=== PATIENT | male | born 1985 | race Two or more races ===

== ENCOUNTER 2019-07-07 17:07 | Inpatient (IN) | payer SELFPAY ==
[2019-07-07] MEDS ORDERED: MAGNESIUM SULFATE/D5W 1 GM/100 ML RTUPB IV ONE (17:11)
[2019-07-07] MEDS ORDERED: ALBUTEROL SULFATE HFA (90 MCG/PUFF) 8 GM MDI (1 MDI/ER DISP) IH ONE (17:15)
[2019-07-07] MEDS ORDERED: METHYLPREDNISOLONE INJ 125 MG/2 ML SDV IV ONE (17:23)
[2019-07-07 17:38] LABS: ABSOLUTE LYMPHOCYTES (AUTO) 1.3 10^3/uL (0.5-4.7); ABSOLUTE MONOCYTES (AUTO) 0.9 10^3/uL (0.1-1.4); ABSOLUTE NEUT (AUTO) 11.1 10^3/uL (1.7-8.2); BASOPHILS % (AUTO) 0.3 % (0-2); EOSINOPHILS % (AUTO) 0.1 % (0-6); HEMOGLOBIN 18.5 g/dL (13.5-17.0); LYMPHOCYTES % (AUTO) 9.8 % (13-45); MEAN CORPUSCULAR HEMOGLOBIN 30.3 pg (27.0-33.4); MEAN CORPUSCULAR HGB CONC 33.5 g/dL (32.0-36.0); MEAN CORPUSCULAR VOLUME 90 fl (80-97); MONOCYTES % (AUTO) 6.5 % (3-13); PLATELET COUNT 295 10^3/uL (150-450); RED BLOOD COUNT 6.12 10^6/uL (4.35-5.55); RED CELL DISTRIBUTION WIDTH 15.4 % (11.5-14.0); SEGMENTED NEUTROPHILS % (AUTO) 83.3 % (42-78); TOTAL CELLS COUNTED % (AUTO) 100 %; WHITE BLOOD COUNT 13.4 10^3/uL (4.0-10.5)
[2019-07-07 17:39] LABS: HEMATOCRIT 55.3 % (37.9-51.0)
[2019-07-07 17:50] LABS: ALBUMIN 3.1 g/dL (3.5-5.0); ALKALINE PHOSPHATASE 152 U/L (38-126); ANION GAP 8 (5-19); ASPARTATE AMINO TRANSFERASE 59 U/L (17-59); BILIRUBIN,DIRECT 1.1 mg/dL (0.0-0.4); BILIRUBIN,TOTAL 2.3 mg/dL (0.2-1.3); BLOOD UREA NITROGEN 13 mg/dL (7-20); CALCIUM 8.6 mg/dL (8.4-10.2); CARBON DIOXIDE 34 mmol/L (22-30); CHLORIDE 86 mmol/L (98-107); GLUCOSE 106 mg/dL (75-110); POTASSIUM 4.4 mmol/L (3.6-5.0); TOTAL PROTEIN 7.3 g/dL (6.3-8.2)
[2019-07-07 17:54] LABS: A TYPE INFLUENZA AG NEGATIVE (NEGATIVE); B INFLUENZA AG NEGATIVE (NEGATIVE)
--- NOTE | 2019-07-07 18:05 | RADIOLOGY REPORT (SQ) ---
EXAM DESCRIPTION: CHEST SINGLE VIEW IMAGES COMPLETED DATE/TIME: 07/07/2019 5:50 pm REASON FOR STUDY: dyspnea COMPARISON: None. EXAM PARAMETERS: NUMBER OF VIEWS: One view. TECHNIQUE: An AP view of the chest was obtained. RADIATION DOSE: NA LIMITATIONS: None. FINDINGS: LUNGS AND PLEURA: There are basilar-predominant patchy parenchymal opacities. The right c ostophrenic sulcus is blunted. There is no pneumothorax. MEDIASTINUM AND HILAR STRUCTURES: No mediastinal or hilar contour abnormality. HEART AND VASCULAR STRUCTURES: The cardiac silhouette is enlarged. The pulmonary vasculature is mikayla stinct. BONES: No acute findings. HARDWARE: None in the chest. OTHER: No other finding. IMPRESSION: Cardiomegaly with findings of CHF. TECHNICAL DOCUMENTATION: JOB ID: [id number] 2010 [employer]- All Rights Reserved Reading location - IP/workstation name: [email or web address]
[2019-07-07 18:10] LABS: TROPONIN I 0.082 ng/mL
[2019-07-07] MEDS ORDERED: FUROSEMIDE INJ/PF 40 MG/4 ML SDV IV ONE (18:19)
--- NOTE | 2019-07-07 19:18 | EKG REPORT ---
SEVERITY:- ABNORMAL ECG - SINUS TACHYCARDIA PROBABLE LEFT ATRIAL ABNORMALITY BORDERLINE T WAVE ABNORMALITIES INFERIOR LEADS PROLONGED QT INTERVAL IVCD : Confirmed by: Aiden Hodges MD 07-Jul-2019 19:17:36
--- NOTE | 2019-07-07 19:39 | ER Document Report ---
ED General - General Chief Complaint: Shortness Of Breath Stated Complaint: DIFFICULTY BREATHING Time Seen by Provider: 07/07/19 17:08 - HPI Notes: Patient is a 33-year-old male who presents to the emergency department for evaluation of difficulty breathing. He has had some difficulty over the last couple weeks. He has had a minimal cough, intermittently productive. He states it felt like it started which is some sinus congestion. No fevers. He has a history of asthma as a child. He does admit to smoking. He denies any pain at this point. He has had no nausea or vomiting. He is eating and drinking as usual. He does not follow with a primary care provider at this time. - Related Data Allergies/Adverse Reactions: No Known Allergies Allergy (Unverified 01/30/12 06:37) Past Medical History - General Information source: Patient - Social History Smoking Status: Current Every Day Smoker Chew tobacco use (# tins/day): No Frequency of alcohol use: Social Drug Abuse: None Family History: Reviewed & Not Pertinent Patient has suicidal ideation: No Patient has homicidal ideation: No Pulmonary Medical History: Reports: Hx Asthma - Immunizations Hx Diphtheria, Pertussis, Tetanus Vaccination: No Review of Systems - Review of Systems Respiratory: See HPI -: Yes All other systems reviewed and negative Physical Exam - Vital signs Vitals: Temp 98.4 F 07/07/19 17:07 - Notes Notes: This is an obese 33-year-old male who appears his stated age in a mild to moderate distress. Initially he has brought into the room, is found to be tachypneic. Mildly increased work of breathing. Vital signs reviewed, please refer to chart. Head is normocephalic, atraumatic. Pupils equal round, reactive to light. Neck is supple without meningismus. Heart is tachycardic with normal S1, S2. Lungs are clear to auscultation bilaterally. Abdomen is soft, nontender, normoactive bowel sounds throughout. Extremities without cyanosis, clubbing. Posterior calves are nontender. Peripheral pulses are equal. Skin is warm, mildly diaphoretic. Patient is awake, alert, neurological exam is nonfocal. Course - Re-evaluation Re-evalutation: 07/07/19 19:38 Patient presents to the emergency department for evaluation. He has had a cough, but no fevers, no abnormal travel, no other risk factors for coronavirus at this time. He was found to be markedly hypoxic. He was placed on nasal cannula at 6 L and has been between 90 to 94%. His respiratory rate improved. He was given 6 puffs of an albuterol inhaler. His blood pressure is markedly elevated, but I do strongly suspect this is in part secondary to his large arms in the size of our cuff. His chest x-ray and proBNP are consistent with signs of congestive heart failure. He is given 40 mg of IV Lasix and did diurese. Patient is currently stable, denies any pain. 07/07/19 21:30 ABG was ordered. He does have some CO2 retention, but his pH is only slightly low. Currently his respiratory rate is improved. He continues to require nasal cannula. He was given labetalol for his elevated blood pressure and it has responded significantly. I spoke with Dr. Stratton. He will admit the patient to [facility] for further care. - Vital Signs Vital signs: Temp Pulse Resp BP Pulse Ox 98.7 F 84 24 H 129/116 H 94 07/07/19 19:49 07/07/19 21:16 07/07/19 21:16 07/07/19 21:16 07/07/19 21:16 - Laboratory Result Diagrams: 07/07/19 17:17 07/07/19 17:17 Laboratory results interpreted by me: 07/07/19 07/07/19 07/07/19 17:17 17:17 17:17 WBC 13.4 H RBC 6.12 H Hgb 18.5 H Hct 55.3 H RDW 15.4 H Lymph % (Auto) 9.8 L Absolute Neuts (auto) 11.1 H Seg Neutrophils % 83.3 H Carbonic Acid ABG pH ABG pCO2 ABG HCO3 ABG Total CO2 Sodium 127.7 L Chloride 86 L Carbon Dioxide 34 H Total Bilirubin 2.3 H Direct Bilirubin 1.1 H Alkaline Phosphatase 152 H NT-Pro-B Natriuret Pep 908 H Albumin 3.1 L Urine Protein Urine Blood Urine Urobilinogen 07/07/19 07/07/19 18:51 20:45 WBC RBC Hgb Hct RDW Lymph % (Auto) Absolute Neuts (auto) Seg Neutrophils % Carbonic Acid 1.91 H ABG pH 7.34 L ABG pCO2 63.5 H ABG HCO3 33.7 H ABG Total CO2 35.7 H Sodium Chloride Carbon Dioxide Total Bilirubin Direct Bilirubin Alkaline Phosphatase NT-Pro-B Natriuret Pep Albumin Urine Protein >=500 H Urine Blood SMALL H Urine Urobilinogen 2.0 H - Diagnostic Test Radiology reviewed: Image reviewed, Reports reviewed Radiology results interpreted by me: 07/07/19 19:39 Chest X-Ray 07/07/19 17:09 IMPRESSION: Cardiomegaly with findings of CHF. - EKG Interpretation by Me Additional EKG results interpreted by me: 07/07/19 19:39 Sinus tachycardia with a rate of 101 bpm. Normal axis. Prolonged QT interval. Incomplete right bundle branch block. No old studies available for comparison. Discharge - Discharge Clinical Impression: Hypoxemia, Acute asthma Congestive heart failure Qualifiers: Heart failure type: unspecified Heart failure chronicity: acute Qualified Code(s): I50.9 - Heart failure, unspecified Condition: Stable Disposition: ADMITTED INPATIENT Admitting Provider: Viral (Hospitalist) Unit Admitted: [facility]
[2019-07-07] MEDS ORDERED: LABETALOL HCL INJ 20 MG/4 ML DISP.SYRIN IV ONE (19:46)
[2019-07-07 20:11] LABS: APPEARANCE,URINE CLEAR; BILIRUBIN,URINE NEGATIVE (NEGATIVE); COLOR,URINE YELLOW; GLUCOSE, URINE NEGATIVE (NEGATIVE); KETONES,URINE NEGATIVE (NEGATIVE); LEUKOCYTE ESTERASE,URINE NEGATIVE (NEGATIVE); NITRITE,URINE NEGATIVE (NEGATIVE); PROTEIN,URINE >=500 mg/dL (NEGATIVE); URINE SPECIFIC GRAVITY 1.008
[2019-07-07 20:54] LABS: ARTERIAL BLOOD FIO2 100%; ARTERIAL BLOOD H2CO3 1.91 mmol/L (1.05-1.35); ARTERIAL BLOOD HCO3 33.7 mmol/L (20-24); ARTERIAL BLOOD O2 SATURATION 95.7 % (94-98); ARTERIAL BLOOD PCO2 63.5 mmHg (35-45); ARTERIAL BLOOD PH 7.34 (7.35-7.45); ARTERIAL BLOOD PO2 85.4 mmHg (80-100); ARTERIAL BLOOD TOTAL CO2 35.7 mmol/L (23-27)
[2019-07-07 21:14] LABS: URINE BARBITURATES SCREEN NEGATIVE; URINE BENZODIAZEPINES SCREEN NEGATIVE; URINE COCAINE SCREEN NEGATIVE; URINE MARIJUANA (THC) SCREEN NEGATIVE; URINE METHADONE SCREEN NEGATIVE; URINE PHENCYCLIDINE SCREEN NEGATIVE
[2019-07-07 21:21] LABS: URINE AMPHETAMINES SCREEN UNCONFIRMED POSITIVE
[2019-07-07] MEDS ORDERED: HYDRALAZINE HCL INJ/PF 20 MG/1 ML SDV IV PRN (21:29)
[2019-07-07] MEDS ORDERED: POTASSIUM CHLORIDE 10 MEQ TABLET.ER PO ONE (21:31)
[2019-07-07] MEDS ORDERED: ENALAPRILAT DIHYDRATE INJ/PF 1.25 MG/1 ML SDV IV PRN (21:34)
[2019-07-07] MEDS ORDERED: METOPROLOL TARTRATE PF/INJ 5 MG/5 ML SDV IV PRN (21:34)
[2019-07-07] MEDS ORDERED: METOPROLOL TARTRATE PF/INJ 5 MG/5 ML SDV IV ONE (21:34)
[2019-07-07] MEDS ORDERED: MAG HYDROX/AL HYDROX/SIMETH SUSP 30 ML UDCUP PO PRN (21:34)
[2019-07-07] MEDS ORDERED: MAGNESIUM HYDROXIDE SUSP 30 ML UDCUP PO PRN (21:34)
[2019-07-07] MEDS: FLUTICASONE NASAL SPRAY 50 MCG/SPRY 120 SPRAY/16 GM NASL SCH (23:43)
[2019-07-07] MEDS: HEPARIN SOD (PORCINE) 5,000 UNIT/ML 1 ML VIAL SUBCUT SCH (23:44)
[2019-07-07] MEDS: NITROGLYCERIN 5 MG (0.2 MG/HR) PATCH.TD24 TD SCH (23:44)
[2019-07-08] MEDS ORDERED: NICOTINE 14 MG/24 HR PATCH.TD24 TD ONE (02:15)
[2019-07-08] MEDS: HEPARIN SOD (PORCINE) 5,000 UNIT/ML 1 ML VIAL SUBCUT SCH ×3 (05:51→21:05)
--- NOTE | 2019-07-08 06:04 | PDOC H&P ---
History of Present Illness Admission Date/PCP: 07/07/19 21:43 Patient complains of: Shortness of breath History of Present Illness: SKY IRVING is a 33 year old male with a past medical history of morbid obesity and tobacco dependence who describes 7 to 10 days of sinus and chest congestion prompting him to use multiple yaxf-tar-jmnfgkb agents with minimal relief. He denies fever, palpitations, chest pain, nausea vomiting but admits a intermittent cough with yellow sputum. In the emergency department he is found to have tachypnea, hypoxia, hyponatremia, elevated BNP and pulmonary vascular congestion. He received IV Lasix, BiPAP and referred to the hospitalist for admission. He denies fever, exposure to known covert patients or recent travel. Past Medical History Medical History: None Cardiac Medical History: Reports: None Pulmonary Medical History: Reports: Bronchitis Psychiatric Medical History: Reports: Tobacco Dependency Past Surgical History Past Surgical History: Reports: None Social History Information Source: Patient Lives with: Family Smoking Status: Current Every Day Smoker Cigarettes Packs Per Day: 2 Electronic Cigarette use?: No Number of Years Smokin Last Time Smoked: 07/07/19 Frequency of Alcohol Use: Occasional Hx Recreational Drug Use: No Hx Prescription Drug Abuse: No - Advance Directive Resuscitation Status: Full Code Family History Family History: DM, Hypertension, Other - Morbid obesity Parental Family History Reviewed: Yes Children Family History Reviewed: Yes Sibling(s) Family History Reviewed.: Yes Medication/Allergy Allergies/Adverse Reactions: No Known Allergies Allergy (Unverified 01/30/12 06:37) Physical Exam Vital Signs: Temp Pulse Resp BP Pulse Ox 97.5 F 85 32 H 139/86 H 90 L 07/08/19 03:27 07/08/19 03:27 07/08/19 04:54 07/08/19 03:27 07/08/19 03:27 Intake & Output 07/06/19 07/07/19 07/08/19 11:59 11:59 11:59 Intake Total 100 Output Total 1200 Balance -1100 Weight 180 kg General appearance: PRESENT: no acute distress, cooperative, morbidly obese, well-developed, well-nourished Head exam: PRESENT: atraumatic, normocephalic Eye exam: PRESENT: conjunctiva pink, EOMI, PERRLA. ABSENT: scleral icterus Ear exam: PRESENT: normal external ear exam Mouth exam: PRESENT: moist, tongue midline Neck exam: ABSENT: carotid bruit, JVD, lymphadenopathy, thyromegaly Respiratory exam: PRESENT: accessory muscle use, crackles, prolonged expiratory phas, wheezes. ABSENT: rales, rhonchi Cardiovascular exam: PRESENT: RRR. ABSENT: diastolic murmur, rubs, systolic murmur Pulses: PRESENT: normal dorsalis pedis pul Vascular exam: PRESENT: normal capillary refill GI/Abdominal exam: PRESENT: normal bowel sounds, soft. ABSENT: distended, guarding, mass, organolmegaly, rebound, tenderness Rectal exam: PRESENT: deferred Extremities exam: PRESENT: full ROM. ABSENT: calf tenderness, clubbing, pedal edema Neurological exam: PRESENT: alert, awake, oriented to person, oriented to place, oriented to time, oriented to situation, CN II-XII grossly intact. ABSENT: motor sensory deficit Psychiatric exam: PRESENT: appropriate affect, normal mood. ABSENT: homicidal ideation, suicidal ideation Skin exam: PRESENT: dry, intact, warm. ABSENT: cyanosis, rash Results Laboratory Results: 07/07/19 17:17 07/07/19 17:17 07/07/19 07/07/19 07/07/19 17:17 17:17 17:17 WBC 13.4 H RBC 6.12 H Hgb 18.5 H Hct 55.3 H MCV 90 MCH 30.3 MCHC 33.5 RDW 15.4 H Plt Count 295 Seg Neutrophils % 83.3 H Carbonic Acid HCO3/H2CO3 Ratio ABG pH ABG pCO2 ABG pO2 ABG HCO3 ABG O2 Saturation ABG Base Excess FiO2 Sodium 127.7 L Potassium 4.4 Chloride 86 L Carbon Dioxide 34 H Anion Gap 8 BUN 13 Creatinine 0.61 Est GFR ( Amer) > 60 Glucose 106 Calcium 8.6 Total Bilirubin 2.3 H AST 59 Alkaline Phosphatase 152 H Total Protein 7.3 Albumin 3.1 L TSH 3.14 Urine Color Urine Appearance Urine pH Ur Specific [place] Urine Protein Urine Glucose (UA) Urine Ketones Urine Blood Urine Nitrite Ur Leukocyte Esterase Urine WBC (Auto) Urine RBC (Auto) 07/07/19 07/07/19 18:51 20:45 WBC RBC Hgb Hct MCV MCH MCHC RDW Plt Count Seg Neutrophils % Carbonic Acid 1.91 H HCO3/H2CO3 Ratio 17:1 ABG pH 7.34 L ABG pCO2 63.5 H ABG pO2 85.4 ABG HCO3 33.7 H ABG O2 Saturation 95.7 ABG Base Excess 5.0 FiO2 100% Sodium Potassium Chloride Carbon Dioxide Anion Gap BUN Creatinine Est GFR ( Amer) Glucose Calcium Total Bilirubin AST Alkaline Phosphatase Total Protein Albumin TSH Urine Color YELLOW Urine Appearance CLEAR Urine pH 6.0 Ur Specific [place] 1.008 Urine Protein >=500 H Urine Glucose (UA) NEGATIVE Urine Ketones NEGATIVE Urine Blood SMALL H Urine Nitrite NEGATIVE Ur Leukocyte Esterase NEGATIVE Urine WBC (Auto) 3 Urine RBC (Auto) 1 07/07/19 07/07/19 17:17 23:18 Troponin I 0.082 0.067 NT-Pro-B Natriuret Pep 908 H Impressions: Chest X-Ray 07/07/19 17:09 IMPRESSION: Cardiomegaly with findings of CHF. Assessment and Plan - Diagnosis (1) Morbid obesity with alveolar hypoventilation Is this a current diagnosis for this admission?: Yes Plan: Avoid cervical flexion, trial BiPAP, follow-up TSH (2) Polycythemia secondary to smoking Is this a current diagnosis for this admission?: Yes Plan: Supplemental oxygen, tobacco cessation counseling performed and nicotine replacement options ordered. (3) Tobacco abuse Is this a current diagnosis for this admission?: Yes Plan: Tobacco cessation counseling performed, nicotine replacement option ordered. (4) Congestive heart failure Qualifiers: Heart failure type: unspecified Heart failure chronicity: acute Qualified Code(s): I50.9 - Heart failure, unspecified Is this a current diagnosis for this admission?: Yes Plan: Appears volume overloaded. IV Lasix initiated, BiPAP, follow-up 2D echo (5) Hypoxemia Is this a current diagnosis for this admission?: Yes Plan: Corrects with supplemental oxygen, multifactorial secondary to morbid obesity hypoventilation and congestive heart failure. Consider repeat ABG but clinically awake and alert conversational (6) Allergic sinusitis Is this a current diagnosis for this admission?: Yes Plan: Flonase ordered - Time Time Spent with patient: 25-34 minutes - Inpatient Certification Medical Necessity: Need Close Monitoring Due to Risk of Patient Decompensation
[2019-07-08 06:50] LABS: ANION GAP 6 (5-19); BLOOD UREA NITROGEN 15 mg/dL (7-20); CALCIUM 8.6 mg/dL (8.4-10.2); CARBON DIOXIDE 35 mmol/L (22-30); CHLORIDE 91 mmol/L (98-107); GLUCOSE 135 mg/dL (75-110); POTASSIUM 4.5 mmol/L (3.6-5.0)
[2019-07-08] MEDS ORDERED: FUROSEMIDE INJ/PF 40 MG/4 ML SDV IV SCH (10:00)
--- NOTE | 2019-07-08 10:31 | PDOC PROGRESS REPORT ---
Subjective Progress Note for:: 07/08/19 Subjective:: Patient complains of: Shortness of breath History of Present Illness: SKY IRVING is a 33 year old male with a past medical history of morbid obesity and tobacco dependence who describes 7 to 10 days of sinus and chest congestion prompting him to use multiple zcfy-vip-cespjkl agents with minimal relief. He denies fever, palpitations, chest pain, nausea vomiting but admits a intermittent cough with yellow sputum. In the emergency department he is found to have tachypnea, hypoxia, hyponatremia, elevated BNP and pulmonary vascular congestion. He received IV Lasix, BiPAP and referred to the hospitalist for admission. He denies fever, exposure to known covert patients or recent travel. Interval history: 07/08/2019: Patient seen and examined. He is on BiPAP. He says he is feeling better. He wants to go home and go back to work. Echocardiogram still pending. Reason For Visit: HEART FAILURE Physical Exam Vital Signs: Temp Pulse Resp BP Pulse Ox 97.2 F 88 38 H 147/94 H 90 L 07/08/19 07:31 07/08/19 07:31 07/08/19 09:28 07/08/19 07:31 07/08/19 09:28 Intake & Output 07/07/19 07/08/19 07/09/19 06:59 06:59 06:59 Intake Total 250 Output Total 1200 Balance -950 Weight 401 lb 14.443 oz Exam: Physical Exam General appearance: no acute distress, cooperative, morbidly obese, well- developed, well-nourished Head exam: atraumatic, normocephalic Eye exam: conjunctiva pink, EOMI, PERRLA. No scleral icterus Ear exam: normal external ear exam Mouth exam: moist, tongue midline Neck exam: No carotid bruit, JVD, lymphadenopathy, thyromegaly Respiratory exam: accessory muscle use, crackles, prolonged expiratory phas, wheezes. No rales, rhonchi Cardiovascular exam: RRR. No diastolic murmur, rubs, systolic murmur Pulses: normal dorsalis pedis pul Vascular exam: normal capillary refill GI/Abdominal exam: normal bowel sounds, soft. No distended, guarding, mass, organolmegaly, rebound, tenderness Rectal exam: deferred Extremities exam: full ROM. No calf tenderness, clubbing, pedal edema Neurological exam: alert, awake, oriented to person, oriented to place, oriented to time, oriented to situation, CN II-XII grossly intact. No motor sensory deficit Psychiatric exam: appropriate affect, normal mood. No homicidal ideation, suicidal ideation Skin exam: dry, intact, warm. No cyanosis, rash Results Laboratory Results: 07/07/19 17:17 07/08/19 05:18 07/07/19 07/07/19 07/07/19 17:17 17:17 17:17 WBC 13.4 H RBC 6.12 H Hgb 18.5 H Hct 55.3 H MCV 90 MCH 30.3 MCHC 33.5 RDW 15.4 H Plt Count 295 Seg Neutrophils % 83.3 H Carbonic Acid HCO3/H2CO3 Ratio ABG pH ABG pCO2 ABG pO2 ABG HCO3 ABG O2 Saturation ABG Base Excess FiO2 Sodium 127.7 L Potassium 4.4 Chloride 86 L Carbon Dioxide 34 H Anion Gap 8 BUN 13 Creatinine 0.61 Est GFR ( Amer) > 60 Glucose 106 Calcium 8.6 Total Bilirubin 2.3 H AST 59 Alkaline Phosphatase 152 H Total Protein 7.3 Albumin 3.1 L TSH 3.14 Urine Color Urine Appearance Urine pH Ur Specific [place] Urine Protein Urine Glucose (UA) Urine Ketones Urine Blood Urine Nitrite Ur Leukocyte Esterase Urine WBC (Auto) Urine RBC (Auto) 07/07/19 07/07/19 07/08/19 18:51 20:45 05:18 WBC RBC Hgb Hct MCV MCH MCHC RDW Plt Count Seg Neutrophils % Carbonic Acid 1.91 H HCO3/H2CO3 Ratio 17:1 ABG pH 7.34 L ABG pCO2 63.5 H ABG pO2 85.4 ABG HCO3 33.7 H ABG O2 Saturation 95.7 ABG Base Excess 5.0 FiO2 100% Sodium 131.7 L Potassium 4.5 Chloride 91 L Carbon Dioxide 35 H Anion Gap 6 BUN 15 Creatinine 0.54 Est GFR ( Amer) > 60 Glucose 135 H Calcium 8.6 Total Bilirubin AST Alkaline Phosphatase Total Protein Albumin TSH Urine Color YELLOW Urine Appearance CLEAR Urine pH 6.0 Ur Specific [place] 1.008 Urine Protein >=500 H Urine Glucose (UA) NEGATIVE Urine Ketones NEGATIVE Urine Blood SMALL H Urine Nitrite NEGATIVE Ur Leukocyte Esterase NEGATIVE Urine WBC (Auto) 3 Urine RBC (Auto) 1 07/07/19 07/07/19 07/08/19 17:17 23:18 05:18 Troponin I 0.082 0.067 0.045 NT-Pro-B Natriuret Pep 908 H Impressions: Chest X-Ray 07/07/19 17:09 IMPRESSION: Cardiomegaly with findings of CHF. Assessment and Plan - Plan Summary Summary: Assessment and Plan (1) Morbid obesity with alveolar hypoventilation Is this a current diagnosis for this admission?: Yes Plan: Continue BiPAP, normal TSH. Will need sleep study outpatient. (2) Polycythemia secondary to smoking Is this a current diagnosis for this admission?: Yes Plan: Supplemental oxygen, tobacco cessation counseling performed and nicotine replacement options ordered. (3) Tobacco abuse Is this a current diagnosis for this admission?: Yes Plan: Tobacco cessation counseling performed, nicotine replacement option ordered. (4) Congestive heart failure Qualifiers: Heart failure type: unspecified Heart failure chronicity: acute Qualified Code(s): I50.9 - Heart failure, unspecified Is this a current diagnosis for this admission?: Yes Plan: Appears volume overloaded. Continue IV Lasix BiPAP, follow-up 2D echo. C ardiology consultation. (5) Hypoxemia Is this a current diagnosis for this admission?: Yes Plan: Corrects with supplemental oxygen, multifactorial secondary to morbid obesity hypoventilation and congestive heart failure. (6) Allergic sinusitis Is this a current diagnosis for this admission?: Yes Plan: Flonase ordered
[2019-07-08] MEDS: POTASSIUM CHLORIDE 10 MEQ TABLET.ER PO SCH (11:37)
[2019-07-08] MEDS: ASPIRIN 81 MG TABLET, ENT COATED PO SCH (11:37)
[2019-07-08] MEDS: NITROGLYCERIN 5 MG (0.2 MG/HR) PATCH.TD24 TD SCH (11:38)
[2019-07-08] MEDS: FLUTICASONE NASAL SPRAY 50 MCG/SPRY 120 SPRAY/16 GM NASL SCH ×2 (11:44→21:09)
[2019-07-08 12:25] LABS: ANION GAP 6 (5-19); BLOOD UREA NITROGEN 17 mg/dL (7-20); CARBON DIOXIDE 38 mmol/L (22-30); CHLORIDE 90 mmol/L (98-107); GLUCOSE 129 mg/dL (75-110); POTASSIUM 4.9 mmol/L (3.6-5.0)
[2019-07-08] MEDS: ACETAMINOPHEN 325 MG TABLET PO PRN (21:08)
--- NOTE | 2019-07-08 23:37 | XCELERA REPORT ---
[address] [address] Transthoracic Echocardiogram Report Name: SKY IRVING Age: 33 yrs Gender: Male : 1985 Patient Status: Inpatient Patient Location: [facility]^A Study Date: 07/08/2019 03:41 PM Height: 69 in Weight: 401 lb BSA: 2.8 m2 Procedure: A two-dimensional transthoracic echocardiogram with color flow and Doppler was performed. Study Quality: Poor. Very poor endocardial defeniition and poor doppler interogation. Reason For Study: chf History: CHF. Ordering Physician: MARTIN ROWE Performed By: Maria G Zavaleta Interpretation Summary The left ventricle is mildly dilated. There is mild to moderate concentric left ventricular hypertrophy. LV diastolic function could not be adequately assessed. Probably moderate diffuse hypokinesis with LVEF moderately reduced at 35% to 40%.No obvious clots seen.Cannot assess ASD ,VSD,or PFO, The right ventricle is not well visualized secondary to technical limitations Right atrium not well visualized secondary to technical limitations There is no evidence of mitral valve prolapse. There is no mitral valve stenosis. There is a trace amount of mitral regurgitation There is no aortic valve stenosis No aortic regurgitation is present. There is no tricuspid stenosis. There is a trace amount of tricuspid regurgitation Tricuspid regurgitation jet envelope not well defined to measure RV systolic pressure accurately. There is no pulmonic valvular stenosis. There is a trace amount of pulmonic regurgitation The aortic root is not well visualized but is probably normal size. The inferior vena cava was not visualized There is no pericardial effusion. MMode/2D Measurements & Calculations RVDd: 2.9 cm LVIDd: 6.1 cm FS: 14.0 % Ao root diam: 3.5 cm IVSd: 1.4 cm LVIDs: 5.2 cm EDV(Teich): 186.6 ml Ao root area: 9.4 cm2 LVPWd: 1.6 cm ESV(Teich): 132.0 ml LA dimension: 3.5 cm EF(Teich): 29.3 % Doppler Measurements & Calculations MV E max mikey: MV P1/2t max mikey: Ao V2 max: LV V1 max P.1 cm/sec 123.1 cm/sec 138.7 cm/sec 3.7 mmHg MV A max mikey: MV P1/2t: 48.6 msec Ao max P.7 mmHgLV V1 max: 103.7 cm/sec MVA(P1/2t): 4.5 cm2 95.8 cm/sec MV E/A: 1.1 MV dec slope: 742.3 cm/sec2 MV dec time: 0.17 sec PA V2 max: PI end-d mikey: MV P1/2t-pr_phl: 98.7 cm/sec 155.1 cm/sec 48.6 msec PA max P.9 mmHg Left Ventricle The left ventricle is mildly dilated. There is mild to moderate concentric left ventricular hypertrophy. Probably moderate diffuse hypokinesis with LVEF moderately reduced at 35% to 40%.No obvious clots seen.Cannot assess ASD ,VSD,or PFO,. LV diastolic function could not be adequately assessed. Right Ventricle The right ventricle is not well visualized secondary to technical limitations. Atria Right atrium not well visualized secondary to technical limitations. The left atrial size is normal. Mitral Valve There is no evidence of mitral valve prolapse. There is no mitral valve stenosis. There is a trace amount of mitral regurgitation. Aortic Valve There is no aortic valve stenosis. No aortic regurgitation is present. Tricuspid Valve There is no tricuspid stenosis. There is a trace amount of tricuspid regurgitation. Tricuspid regurgitation jet envelope not well defined to measure RV systolic pressure accurately. Pulmonic Valve There is no pulmonic valvular stenosis. There is a trace amount of pulmonic regurgitation. Great Vessels The aortic root is not well visualized but is probably normal size. The inferior vena cava was not visualized. Effusions There is no pericardial effusion. : MARTIN ROWE Lakshmi
[2019-07-09] MEDS: ACETAMINOPHEN 325 MG TABLET PO PRN ×3 (05:05→20:42)
[2019-07-09] MEDS: HEPARIN SOD (PORCINE) 5,000 UNIT/ML 1 ML VIAL SUBCUT SCH ×3 (05:05→21:40)
--- NOTE | 2019-07-09 07:38 | PDOC CONSULTATION ---
Consultation Consult Date: 07/09/19 Attending physician:: MARTIN ROWE Provider Consulted: JESUS ISRAEL Consult reason:: CHF History of Present Illness Admission Date/PCP: 07/07/19 21:43 Patient complains of: The patient complains of dizziness and lightheadedness. History of Present Illness: SKY IRVING is a 33 year old male with history of morbid obesity, sleep apnea and tobacco use who quit 3 days ago who was admitted to the hospital for further evaluation of sinus and chest congestion for 7 to 10 days not associated with fever, palpitations, chest pain. In the emergency room he was found to have clinical and radiographical evidence of heart failure therefore he was admitted and consulted to our service. Today he denies prior history of coronary artery disease as well as family history of cardiac disease. His echocardiogram on 07/08/2019 demonstrated a mildly to moderately depressed LV systolic function with EF between 35 and 40% among other findings. Of note, there was no significant valvular disease. Today his main complaint is dizziness and lightheadedness and continues to have some shortness of breath. Physical exam on 07/09/2019: GENERAL: Pleasant and conversational. Morbidly obese. Mildly tachypneic. Or iented x3 with normal mood. Not in acute distress. Well groomed and well developed. HEENT: Normocephalic, atraumatic. Pupils equal. Sclerae anicteric. Oropharynx moist. NECK: Difficult to evaluate secondary to his body habitus. LUNGS: Mildly tachypneic. Clear to auscultation bilaterally. Normal respiratory effort without the use of accessory muscles or intercostal retractions. CARDIOVASCULAR: Regular rate and rhythm, normal S1 and S2 without murmurs, rubs, or gallops. PMI not displaced. ABDOMEN: Bowel sounds present, no tenderness to palpation, not distended. EXTREMITIES: 1+ pitting edema bilaterally, no cyanosis, no clubbing. +2 pulses femoral and pedal pulses bilaterally. SKIN: No lesions or rashes. MUSCULOSKELETAL: No chest tenderness to palpation. NEUROLOGICAL: grossly normal, no gross sensitive or muscular deficits, normal muscular strenght in upper and lower extremities. Cardiac studies: Echocardiogram on 07/08/2019: -LV is mildly dilated. -Mild to moderate concentric LVH. -Diastolic function could not be assessed. -Moderate diffuse hypokinesis. -EF 35 to 40%. -Trace MR, trace TR, trace PI Past Medical History Cardiac Medical History: Reports: None Pulmonary Medical History: Reports: Asthma, Bronchitis Psychiatric Medical History: Reports: Tobacco Dependency Past Surgical History Past Surgical History: Reports: None Social History Lives with: Family Smoking Status: Current Every Day Smoker Cigarettes Packs Per Day: 2 Electronic Cigarette use?: No Number of Years Smokin Last Time Smoked: 07/07/19 Frequency of Alcohol Use: Occasional Hx Recreational Drug Use: No Hx Prescription Drug Abuse: No - Advance Directive Resuscitation Status: Full Code Family History Family History: DM, Hypertension, Other - Morbid obesity Parental Family History Reviewed: Yes Children Family History Reviewed: Yes Sibling(s) Family History Reviewed.: Yes Medication/Allergy Home Medications: No Home Medications 07/08/19 Allergies/Adverse Reactions: No Known Allergies Allergy (Unverified 01/30/12 06:37) Physical Exam Vital Signs: Temp Pulse Resp BP Pulse Ox 98.4 F 97 40 H 135/97 H 91 L 07/09/19 03:24 07/09/19 03:24 07/09/19 04:00 07/09/19 03:24 07/09/19 04:00 Intake & Output 07/07/19 07/08/19 07/09/19 06:59 06:59 06:59 Intake Total 250 600 Output Total 1200 Balance -950 600 Weight 182.3 kg 182.3 kg Results Laboratory Results: 07/07/19 17:17 07/08/19 10:59 07/08/19 07/08/19 07/08/19 05:18 10:59 10:59 Sodium 131.7 L Cancelled 134.0 L Potassium 4.5 Cancelled 4.9 Chloride 91 L Cancelled 90 L Carbon Dioxide 35 H Cancelled 38 H Anion Gap 6 Cancelled 6 BUN 15 Cancelled 17 Creatinine 0.54 Cancelled 0.58 Est GFR ( Amer) > 60 Cancelled > 60 Est GFR (Non-Af Amer) Cancelled Glucose 135 H Cancelled 129 H Calcium 8.6 Cancelled 9.0 07/07/19 07/07/19 07/08/19 17:17 23:18 05:18 Troponin I 0.082 0.067 0.045 NT-Pro-B Natriuret Pep 908 H 07/08/19 10:59 Troponin I 0.048 NT-Pro-B Natriuret Pep Impressions: Chest X-Ray 07/07/19 17:09 IMPRESSION: Cardiomegaly with findings of CHF. 07/07/19 17:17 07/08/19 10:59 MCV 90 fl (80-97) 07/07/19 17:17 MCH 30.3 pg (27.0-33.4) 07/07/19 17:17 MCHC 33.5 g/dL (32.0-36.0) 07/07/19 17:17 RDW 15.4 % (11.5-14.0) H 07/07/19 17:17 Seg Neutrophils % 83.3 % (42-78) H 07/07/19 17:17 Carbonic Acid 1.91 mmol/L (1.05-1.35) H 07/07/19 20:45 HCO3/H2CO3 Ratio 17:1 07/07/19 20:45 ABG pH 7.34 (7.35-7.45) L 07/07/19 20:45 ABG pCO2 63.5 mmHg (35-45) H 07/07/19 20:45 ABG pO2 85.4 mmHg (80-100) 07/07/19 20:45 ABG HCO3 33.7 mmol/L (20-24) H 07/07/19 20:45 ABG O2 Saturation 95.7 % (94-98) 07/07/19 20:45 ABG Base Excess 5.0 mmol/L 07/07/19 20:45 FiO2 100% 07/07/19 20:45 Chloride 90 mmol/L (98-107) L 07/08/19 10:59 Chloride Cancelled 07/08/19 10:59 Carbon Dioxide 38 mmol/L (22-30) H 07/08/19 10:59 Carbon Dioxide Cancelled 07/08/19 10:59 Anion Gap 6 (5-19) 07/08/19 10:59 Anion Gap Cancelled 07/08/19 10:59 Est GFR ( Amer) > 60 (>60) 07/08/19 10:59 Est GFR ( Amer) Cancelled 07/08/19 10:59 Est GFR (Non-Af Amer) Cancelled 07/08/19 10:59 Glucose 129 mg/dL (75-110) H 07/08/19 10:59 Glucose Cancelled 07/08/19 10:59 Calcium 9.0 mg/dL (8.4-10.2) 07/08/19 10:59 Calcium Cancelled 07/08/19 10:59 Total Bilirubin 2.3 mg/dL (0.2-1.3) H 07/07/19 17:17 AST 59 U/L (17-59) 07/07/19 17:17 Alkaline Phosphatase 152 U/L (38-126) H 07/07/19 17:17 Total Protein 7.3 g/dL (6.3-8.2) 07/07/19 17:17 Albumin 3.1 g/dL (3.5-5.0) L 07/07/19 17:17 TSH 3.14 uIU/mL (0.47-4.68) 07/07/19 17:17 Urine Color YELLOW 07/07/19 18:51 Urine Appearance CLEAR 07/07/19 18:51 Urine pH 6.0 (5.0-9.0) 07/07/19 18:51 Ur Specific [place] 1.008 07/07/19 18:51 Urine Protein >=500 mg/dL (NEGATIVE) H 07/07/19 18:51 Urine Glucose (UA) NEGATIVE mg/dL (NEGATIVE) 07/07/19 18:51 Urine Ketones NEGATIVE mg/dL (NEGATIVE) 07/07/19 18:51 Urine Blood SMALL (NEGATIVE) H 07/07/19 18:51 Urine Nitrite NEGATIVE (NEGATIVE) 07/07/19 18:51 Ur Leukocyte Esterase NEGATIVE (NEGATIVE) 07/07/19 18:51 Urine WBC (Auto) 3 /HPF 07/07/19 18:51 Urine RBC (Auto) 1 /HPF 07/07/19 18:51 07/07/19 07/07/19 07/08/19 17:17 23:18 05:18 Troponin I 0.082 0.067 0.045 NT-Pro-B Natriuret Pep 908 H 07/08/19 10:59 Troponin I 0.048 NT-Pro-B Natriuret Pep Current Medication List Generic Name Dose Route Start Last Admin Trade Name Freq PRN Reason Stop Dose Admin Acetaminophen 650 mg 07/07/19 21:34 07/09/19 05:05 Tylenol 325 Mg Tablet PO 08/06/19 21:33 650 mg Q4HP PRN Administration pain or temp greater than 101F Al Hydrox/Mg Hydrox/Simethicone 30 ml 07/07/19 21:34 Maalox Plus Susp 30 Udcup PO 08/06/19 21:33 Q4HP PRN HEARTBURN Aspirin 81 mg 07/08/19 10:00 07/08/19 11:37 Ecotrin 81 Mg Ec Tablet PO 08/07/19 09:59 81 mg DAILY MIKAYLA Administration Enalaprilat 1.25 mg 07/07/19 21:34 Vasotec Inj/Pf 1.25 Mg/1 Ml Sdv IV 08/06/19 21:33 Q6HP PRN sbp>160 Fluticasone Propionate 2 spray 07/07/19 22:00 07/08/19 21:09 Flonase Nasal [place] 50 Mcg/[place] 16 Gm NASL 08/06/19 21:59 2 spr Q12 MIKAYLA Administration Furosemide 40 mg 07/08/19 10:00 07/08/19 11:37 Lasix Inj/Pf 40 Mg/4 Ml Sdv IV 08/07/19 09:59 40 mg DAILY MIKAYLA Administration Heparin Sodium (Porcine) 5,000 unit 07/07/19 22:00 07/09/19 05:05 Heparin Inj 5,000 Units/Ml 1 Ml Vial SUBCUT 08/06/19 21:59 5,000 unit Q8 MIKAYLA Administration Hydralazine HCl 10 mg 07/07/19 21:29 07/08/19 21:08 Apresoline Inj/Pf 20 Mg/1 Ml Sdv IV 08/06/19 21:28 10 mg Q6HP PRN Administration Sbp>160 Magnesium Hydroxide 30 ml 07/07/19 21:34 Milk Of Magnesia 30 Ml Udcup PO 08/06/19 21:33 HSP PRN FOR CONSTIPATION Metoprolol Tartrate 5 mg 07/07/19 21:34 Lopressor Inj/Pf 5 Mg/5 Ml Sdv IV 08/06/19 21:33 Q6HP PRN hr>100 Nicotine 1 each 07/09/19 10:00 Nicoderm 14 Mg/24 Hr Transdermal Patch TD 08/08/19 09:59 DAILY MIKAYLA Nitroglycerin 1 each 07/07/19 21:45 07/08/19 11:38 Nitro-Dur 5 Mg (0.2 Mg/Hr) Transdermal Patch TD 08/06/19 21:44 1 each DAILY MIKAYLA Administration Potassium Chloride 40 meq 07/08/19 10:00 07/08/19 11:37 Klor-Con 10 Meq Tablet Er PO 08/07/19 09:59 40 meq DAILY MIKAYLA Administration Sodium Chloride 2.5 ml 07/07/19 22:00 07/09/19 05:15 Saline Flush 2.5 Ml Monoject Prefil Syrin IV 08/06/19 21:59 2.5 ml Q8 MIKAYLA Administration Discontinued Medications Generic Name Dose Route Start Last Admin Trade Name Latricia PRN Reason Stop Dose Admin Albuterol 6 puff 07/07/19 17:15 07/07/19 17:33 Ventolin Hfa 8 Gm Mdi (1 Mdi/Er Disp) IH 07/07/19 17:16 6 puff ONCE ONE Administration Furosemide 40 mg 07/07/19 18:19 07/07/19 18:46 Lasix Inj/Pf 40 Mg/4 Ml Sdv IV 07/07/19 18:20 40 mg NOW ONE Administration Magnesium Sulfate/Dextrose 1 gm in 100 mls @ 100 mls/hr 07/07/19 17:11 07/07/19 17:50 Magnesium Sulfate Rtu-D5w 1 Gm/100 Ml Premix IV 07/07/19 18:10 Infused NOW ONE Infusion Labetalol HCl 20 mg 07/07/19 19:46 07/07/19 20:12 Normodyne Inj 20 Mg/4 Ml Syringe IV 07/07/19 19:47 20 mg NOW ONE Administration Methylprednisolone Sodium Succinate 125 mg 07/07/19 17:23 07/07/19 17:34 Solu-Medrol Inj/Pf 125 Mg/2 Ml Sdv IV 07/07/19 17:24 125 mg NOW ONE Administration Metoprolol Tartrate 5 mg 07/07/19 21:34 07/07/19 23:42 Lopressor Inj/Pf 5 Mg/5 Ml Sdv IV 07/07/19 21:35 5 mg NOW ONE Administration Nicotine 1 each 07/08/19 02:15 07/08/19 02:35 Nicoderm 14 Mg/24 Hr Transdermal Patch TD 07/08/19 02:16 1 each NOW ONE Administration Potassium Chloride 40 meq 07/07/19 21:31 07/07/19 23:42 Klor-Con 10 Meq Tablet Er PO 07/07/19 21:32 40 meq NOW ONE Administration Assessment & Plan - Diagnosis (1) Heart failure with reduced ejection fraction Is this a current diagnosis for this admission?: Yes Plan: Very pleasant 33-year-old male with new onset of heart failure with reduced ejection fraction of unclear etiology however the patient has multiple cardiac risk factors for coronary artery disease. He appears to be mildly fluid overloaded today and continues to be tachypneic. He is not optimized yet for heart failure management. Recommendations: -Discontinue enalapril IV as needed. -Start Entresto 24 mg / 26 mg p.o. twice daily first dose this morning. -Increase Lasix to 40 mg twice daily. -Start Toprol 25 mg daily. -Low-sodium diet, less than 2000 mg daily. -Limit fluid intake to 1800 cc daily. -Daily weights and chart. -Strict intake and output in chart please. -Lexiscan nuclear stress test during this hospitalization. -Daily basic metabolic panel. -proBNP today. -Replace electrolytes as needed.
[2019-07-09 07:57] LABS: HEMATOCRIT 50.1 % (37.9-51.0); HEMOGLOBIN 17.2 g/dL (13.5-17.0); MEAN CORPUSCULAR HEMOGLOBIN 32.2 pg (27.0-33.4); MEAN CORPUSCULAR HGB CONC 34.2 g/dL (32.0-36.0); PLATELET COUNT 348 10^3/uL (150-450); RED BLOOD COUNT 5.33 10^6/uL (4.35-5.55); RED CELL DISTRIBUTION WIDTH 15.6 % (11.5-14.0); WHITE BLOOD COUNT 17.1 10^3/uL (4.0-10.5)
[2019-07-09 08:13] LABS: MEAN CORPUSCULAR VOLUME 94 fl (80-97)
[2019-07-09 08:18] LABS: BLOOD UREA NITROGEN 18 mg/dL (7-20); CALCIUM 8.6 mg/dL (8.4-10.2); CHLORIDE 93 mmol/L (98-107); GLUCOSE 123 mg/dL (75-110)
[2019-07-09 08:24] LABS: CARBON DIOXIDE 39 mmol/L (22-30)
[2019-07-09 08:28] LABS: ANION GAP 3 (5-19)
--- NOTE | 2019-07-09 09:32 | PDOC PROGRESS REPORT ---
Subjective Progress Note for:: 07/09/19 Subjective:: Patient complains of: Shortness of breath History of Present Illness: SKY IRVING is a 33 year old male with a past medical history of morbid obesity and tobacco dependence who describes 7 to 10 days of sinus and chest congestion prompting him to use multiple sedg-xiy-teqqkmb agents with minimal relief. He denies fever, palpitations, chest pain, nausea vomiting but admits a intermittent cough with yellow sputum. In the emergency department he is found to have tachypnea, hypoxia, hyponatremia, elevated BNP and pulmonary vascular congestion. He received IV Lasix, BiPAP and referred to the hospitalist for admission. He denies fever, exposure to known covert patients or recent travel. Interval history: 07/08/2019: Patient seen and examined. He is on BiPAP. He says he is feeling better. He wants to go home and go back to work. Echocardiogram still pending. 07/09/2019: Patient seen and examined. He was evaluated by cardiology. His ejection fraction 35-40%. He was started on Entresto and Toprol. Stress test is recommended during this admission. Physical Exam General appearance: no acute distress, cooperative, morbidly obese, well- developed, well-nourished Head exam: atraumatic, normocephalic Eye exam: conjunctiva pink, EOMI, PERRLA. No scleral icterus Ear exam: normal external ear exam Mouth exam: moist, tongue midline Neck exam: No carotid bruit, JVD, lymphadenopathy, thyromegaly Respiratory exam: accessory muscle use, crackles, prolonged expiratory phas, wheezes. No rales, rhonchi Cardiovascular exam: RRR. No diastolic murmur, rubs, systolic murmur Pulses: normal dorsalis pedis pul Vascular exam: normal capillary refill GI/Abdominal exam: normal bowel sounds, soft. No distended, guarding, mass, organolmegaly, rebound, tenderness Rectal exam: deferred Extremities exam: full ROM. No calf tenderness, clubbing, pedal edema Neurological exam: alert, awake, oriented to person, oriented to place, oriented to time, oriented to situation, CN II-XII grossly intact. No motor sensory deficit Psychiatric exam: appropriate affect, normal mood. No homicidal ideation, suicidal ideation Skin exam: dry, intact, warm. No cyanosis, rash Reason For Visit: HEART FAILURE Physical Exam Vital Signs: Temp Pulse Resp BP Pulse Ox 97.5 F 95 43 H 130/63 H 95 07/09/19 08:12 07/09/19 08:12 07/09/19 08:51 07/09/19 08:12 07/09/19 08:51 Intake & Output 07/08/19 07/09/19 07/10/19 06:59 06:59 06:59 Intake Total 250 600 Output Total 1200 Balance -950 600 Weight 401 lb 14.443 oz 404 lb 15.826 oz Results Laboratory Results: 07/09/19 07:42 07/09/19 07:42 07/08/19 07/08/19 07/09/19 10:59 10:59 07:42 WBC 17.1 H RBC 5.33 Hgb 17.2 H Hct 50.1 MCV 94 D MCH 32.2 MCHC 34.2 RDW 15.6 H Plt Count 348 Sodium Cancelled 134.0 L Potassium Cancelled 4.9 Chloride Cancelled 90 L Carbon Dioxide Cancelled 38 H Anion Gap Cancelled 6 BUN Cancelled 17 Creatinine Cancelled 0.58 Est GFR ( Amer) Cancelled > 60 Est GFR (Non-Af Amer) Cancelled Glucose Cancelled 129 H Calcium Cancelled 9.0 07/09/19 07:42 WBC RBC Hgb Hct MCV MCH MCHC RDW Plt Count Sodium 134.8 L Potassium 5.0 Chloride 93 L Carbon Dioxide 39 H Anion Gap 3 L BUN 18 Creatinine 0.55 Est GFR ( Amer) > 60 Est GFR (Non-Af Amer) Glucose 123 H Calcium 8.6 07/07/19 07/07/19 07/08/19 17:17 23:18 05:18 Troponin I 0.082 0.067 0.045 NT-Pro-B Natriuret Pep 908 H 07/08/19 10:59 Troponin I 0.048 NT-Pro-B Natriuret Pep Impressions: Chest X-Ray 07/07/19 17:09 IMPRESSION: Cardiomegaly with findings of CHF. Assessment and Plan - Plan Summary Summary: Assessment and Plan (1) Morbid obesity with alveolar hypoventilation Is this a current diagnosis for this admission?: Yes Plan: Continue nasal cannula oxygen and BiPAP PRN, normal TSH. Will need sleep study outpatient. (2) Polycythemia secondary to smoking Is this a current diagnosis for this admission?: Yes Plan: Supplemental oxygen, tobacco cessation counseling performed and nicotine replacement options ordered. (3) Tobacco abuse Is this a current diagnosis for this admission?: Yes Plan: Tobacco cessation counseling performed, nicotine replacement option ordered. (4) Congestive heart failure Qualifiers: Heart failure type: unspecified Heart failure chronicity: acute Qualified Code(s): I50.9 - Heart failure, unspecified Is this a current diagnosis for this admission?: Yes Plan: Appears volume overloaded. Continue IV Lasix twice daily, echocardiogram showed EF 35-40%. Start Entresto and metoprolol by cardiology. Stress test to be done during this admission. (5) Hypoxemia Is this a current diagnosis for this admission?: Yes Plan: Corrects with supplemental oxygen, multifactorial secondary to morbid obesity hypoventilation and congestive heart failure. (6) Allergic sinusitis Is this a current diagnosis for this admission?: Yes Plan: Flonase ordered
[2019-07-09] MEDS ORDERED: SACUBITRIL/VALSARTAN 24 MG/26 MG TABLET PO SCH (10:00)
[2019-07-09] MEDS: METOPROLOL SUCCINATE 25 MG TAB.SR.24H PO SCH (11:13)
[2019-07-09] MEDS: NICOTINE 14 MG/24 HR PATCH.TD24 TD SCH (11:13)
[2019-07-09] MEDS: ASPIRIN 81 MG TABLET, ENT COATED PO SCH (11:13)
[2019-07-09] MEDS: POTASSIUM CHLORIDE 10 MEQ TABLET.ER PO SCH (11:13)
[2019-07-09] MEDS: NITROGLYCERIN 5 MG (0.2 MG/HR) PATCH.TD24 TD SCH (11:14)
[2019-07-09] MEDS: FUROSEMIDE INJ/PF 40 MG/4 ML SDV IV SCH ×2 (11:44→21:40)
[2019-07-09] MEDS: FLUTICASONE NASAL SPRAY 50 MCG/SPRY 120 SPRAY/16 GM NASL SCH ×2 (11:45→21:40)
[2019-07-09] MEDS: SACUBITRIL/VALSARTAN 24 MG/26 MG TABLET PO SCH ×2 (11:46→21:41)
[2019-07-10] MEDS: HEPARIN SOD (PORCINE) 5,000 UNIT/ML 1 ML VIAL SUBCUT SCH ×3 (05:24→22:05)
[2019-07-10 06:24] LABS: BLOOD UREA NITROGEN 14 mg/dL (7-20); CALCIUM 8.6 mg/dL (8.4-10.2); CHLORIDE 89 mmol/L (98-107); GLUCOSE 97 mg/dL (75-110); POTASSIUM 5.3 mmol/L (3.6-5.0)
[2019-07-10 06:32] LABS: ANION GAP 4 (5-19); CARBON DIOXIDE 43 mmol/L (22-30)
[2019-07-10 06:47] LABS: HEMATOCRIT 53.4 % (37.9-51.0); HEMOGLOBIN 17.6 g/dL (13.5-17.0); PLATELET COUNT 287 10^3/uL (150-450); RED CELL DISTRIBUTION WIDTH 16.1 % (11.5-14.0); WHITE BLOOD COUNT 11.7 10^3/uL (4.0-10.5)
[2019-07-10 06:51] LABS: MEAN CORPUSCULAR VOLUME 94 fl (80-97)
[2019-07-10 07:01] LABS: ARTERIAL BLOOD BASE EXCESS 13.3 mmol/L; ARTERIAL BLOOD HCO3 45.7 mmol/L (20-24); ARTERIAL BLOOD O2 SATURATION 91.4 % (94-98); ARTERIAL BLOOD PH 7.31 (7.35-7.45); ARTERIAL BLOOD PO2 70.1 mmHg (80-100); ARTERIAL BLOOD TOTAL CO2 48.6 mmol/L (23-27)
[2019-07-10 07:02] LABS: ARTERIAL BLOOD FIO2 45%
[2019-07-10 07:04] LABS: ARTERIAL BLOOD PCO2 93.1 mmHg (35-45)
[2019-07-10] MEDS ORDERED: IPRATROPIUM/ALBUTEROL 0.5-2.5 MG/3 ML AMPUL NEB PRN (07:29)
--- NOTE | 2019-07-10 08:40 | PDOC PROGRESS REPORT ---
Subjective Progress Note for:: 07/10/19 Subjective:: 33 year old male with a past medical history of morbid obesity and tobacco dependence who describes 7 to 10 days of sinus and chest congestion prompting him to use multiple cnnb-fhb-jptfjjf agents with minimal relief. He denies fever, palpitations, chest pain, nausea vomiting but admits a intermittent cough with yellow sputum. In the emergency department he is found to have tachypnea, hypoxia, hyponatremia, elevated BNP and pulmonary vascular congestion. He re ceived IV Lasix, BiPAP and referred to the hospitalist for admission. He denies fever, exposure to known covert patients or recent travel. Interval history: 07/08/2019: Patient seen and examined. He is on BiPAP. He says he is feeling better. He wants to go home and go back to work. Echocardiogram still pending. 07/09/2019: Patient seen and examined. He was evaluated by cardiology. His ejection fraction 35-40%. He was started on Entresto and Toprol. Stress test is recommended during this admission. 07/10/2019-PCO2 is 43 and the chemistry, ABG was done PO2 is 70 and the PCO2 is 92. Patient denies any chest tightness denies any difficulty in breathing. He was placed on BiPAP. pt is going for CT chest without contrast today, to continue BiPAP and Lasix was increased to 40 mg 3 times a day and initiated on DuoNeb nebulizations and a flutter valve therapy. Reason For Visit: HEART FAILURE Physical Exam Vital Signs: Temp Pulse Resp BP Pulse Ox 98.4 F 94 40 H 145/77 H 96 07/10/19 02:59 07/10/19 06:58 07/10/19 04:00 07/10/19 02:59 07/10/19 02:59 Intake & Output 07/09/19 07/10/19 07/11/19 06:59 06:59 06:59 Intake Total 600 1020 Balance 600 1020 Weight 183.7 kg 179.3 kg General appearance: PRESENT: no acute distress, morbidly obese Head exam: PRESENT: atraumatic Eye exam: PRESENT: PERRLA Mouth exam: PRESENT: dry mucosa Teeth exam: PRESENT: poor dentation Neck exam: ABSENT: carotid bruit, JVD, lymphadenopathy, thyromegaly Respiratory exam: PRESENT: decreased breath sounds Cardiovascular exam: PRESENT: tachycardia GI/Abdominal exam: PRESENT: normal bowel sounds, soft. ABSENT: distended, guarding, mass, organolmegaly, rebound, tenderness Rectal exam: PRESENT: deferred Neurological exam: PRESENT: alert, awake, oriented to person, oriented to place, oriented to time, oriented to situation, CN II-XII grossly intact. ABSENT: motor sensory deficit Psychiatric exam: PRESENT: appropriate affect, normal mood. ABSENT: homicidal ideation, suicidal ideation Results Laboratory Results: 07/10/19 04:50 07/10/19 04:50 07/10/19 07/10/19 07/10/19 04:50 04:50 06:43 WBC 11.7 H RBC 5.70 H Hgb 17.6 H Hct 53.4 H MCV 94 MCH 31.0 MCHC 33.0 RDW 16.1 H Plt Count 287 Carbonic Acid 2.80 H HCO3/H2CO3 Ratio 16:1 ABG pH 7.31 L ABG pCO2 93.1 H* ABG pO2 70.1 L ABG HCO3 45.7 H ABG O2 Saturation 91.4 L ABG Base Excess 13.3 FiO2 45% Sodium 136.0 L Potassium 5.3 H Chloride 89 L Carbon Dioxide 43 H* Anion Gap 4 L BUN 14 Creatinine 0.52 Est GFR ( Amer) > 60 Glucose 97 Calcium 8.6 07/07/19 07/07/19 07/08/19 17:17 23:18 05:18 Troponin I 0.082 0.067 0.045 NT-Pro-B Natriuret Pep 908 H 07/08/19 07/10/19 10:59 04:50 Troponin I 0.048 NT-Pro-B Natriuret Pep 123 Impressions: Chest X-Ray 07/07/19 17:09 IMPRESSION: Cardiomegaly with findings of CHF. Assessment and Plan - Diagnosis (1) Morbid obesity with alveolar hypoventilation Is this a current diagnosis for this admission?: Yes Plan: Avoid cervical flexion, trial BiPAP, follow-up TSH 07/10/2019-plan is to continue oxygen supplementation via nasal cannula and to provide BiPAP on PRN basis. Patient need a sleep study as an outpatient. Cardiology consult was done during this hospital stay Dr. Bermudez plan to do the stress test during this hospital stay. Started on a DuoNeb nebulizations every 4 as needed and flutter valve therapy. (2) Congestive heart failure Qualifiers: Heart failure type: unspecified Heart failure chronicity: acute Qualified Code(s): I50.9 - Heart failure, unspecified Is this a current diagnosis for this admission?: No Plan: Appears volume overloaded. IV Lasix initiated, BiPAP, follow-up 2D echo 07/10/2019-presently on Lasix 40 mg IV 3 times daily plan is to continue BiPAP echocardiogram was done during this hospital stay EF is 35 to 40%. Presently on Entresto and metoprolol as recommended by the cardiology. Waiting for the stress test. Patient is also on 1200 cc fluid restriction. (3) Hypoxemia Is this a current diagnosis for this admission?: Yes Plan: Corrects with supplemental oxygen, multifactorial secondary to morbid obesity hypoventilation and congestive heart failure. Consider repeat ABG but clinically awake and alert conversational 07/10/2019-patient has chronic hypoxia associated with hypercapnia due to morbid obesity and alveolar hypoventilation. On top of it patient has chronic congestive heart failure. Plan is to continue oxygen supplementation nasal cannula and BiPAP on pRN basis. (4) Tobacco abuse Is this a current diagnosis for this admission?: No Plan: Tobacco cessation counseling performed, nicotine replacement option ordered. (5) Allergic sinusitis Is this a current diagnosis for this admission?: Yes Plan: Flonase ordered - Plan Summary Summary: Assessment and Plan (1) Morbid obesity with alveolar hypoventilation Is this a current diagnosis for this admission?: Yes Plan: Continue nasal cannula oxygen and BiPAP PRN, normal TSH. Will need sleep study outpatient. (2) Polycythemia secondary to smoking Is this a current diagnosis for this admission?: Yes Plan: Supplemental oxygen, tobacco cessation counseling performed and nicotine replacement options ordered. (3) Tobacco abuse Is this a current diagnosis for this admission?: Yes Plan: Tobacco cessation counseling performed, nicotine replacement option ordered. (4) Congestive heart failure Qualifiers: Heart failure type: unspecified Heart failure chronicity: acute Qualified Code(s): I50.9 - Heart failure, unspecified Is this a current diagnosis for this admission?: Yes Plan: Appears volume overloaded. Continue IV Lasix twice daily, echocardiogram showed EF 35-40%. Start Entresto and metoprolol by cardiology. Stress test to be done during this admission. (5) Hypoxemia Is this a current diagnosis for this admission?: Yes Plan: Corrects with supplemental oxygen, multifactorial secondary to morbid obesity hypoventilation and congestive heart failure. (6) Allergic sinusitis Is this a current diagnosis for this admission?: Yes Plan: Flonase ordered
--- NOTE | 2019-07-10 09:14 | RADIOLOGY REPORT (SQ) ---
EXAM DESCRIPTION: CT CHEST WITHOUT IMAGES COMPLETED DATE/TIME: 07/10/2019 7:55 am REASON FOR STUDY: dyspnea COMPARISON: None. TECHNIQUE: CT scan performed of the chest without intravenous contrast. Images reviewed with lung, soft tissue and bone windows. Reconstructed coronal and sagittal MPR images reviewed. All images st ored on PACS. All CT scanners at this facility use dose modulation, iterative reconstruction, and/or weight based d osing when appropriate to reduce radiation dose to as low as reasonably achievable (ALARA). [facility]: Dose Right [facility]: CareDose [facility]: Dose Right [facility]: Teradose 4D [facility]: Chalkboard RADIATION DOSE: CT Rad equipment meets quality standard of care and radiation dose reduction techniq ues were employed. CTDIvol: 24.2 mGy. DLP: 979 mGy-cm. mGy. LIMITATIONS: No technical limitations. FINDINGS: LUNGS AND PLEURA: Diffuse reticulonodular pattern with more focal consolidation in the rig ht lower lobe. No effusions. HILAR AND MEDIASTINAL STRUCTURES: No identified masses or abnormal nodes. No obvious aneurysm. HEART AND VASCULAR STRUCTURES: Cardiomegaly. No aneurysm. No pericardial effusion. UPPER ABDOMEN: Small left renal calculus. Limited exam. THYROID AND OTHER SOFT TISSUES: No masses. No adenopathy. BONES: No significant finding. HARDWARE: None in the chest. OTHER: No other significant findings. IMPRESSION: Bilateral pneumonia with more focal consolidation in the right lower lobe. TECHNICAL DOCUMENTATION: JOB ID: [id number] Quality ID # [id number]: Final reports with documentation of one or more dose reduction techniques (e.g., Au tomated exposure control, adjustment of the mA and/or kV according to patient size, use of iterative reconstruction technique) 2010 [employer]- All Rights Reserved Reading location - IP/workstation name: [email or web address]
[2019-07-10] MEDS: METOPROLOL SUCCINATE 25 MG TAB.SR.24H PO SCH (10:08)
[2019-07-10] MEDS: ACETAMINOPHEN 325 MG TABLET PO PRN (10:08)
[2019-07-10] MEDS: SACUBITRIL/VALSARTAN 24 MG/26 MG TABLET PO SCH ×2 (10:09→22:06)
[2019-07-10] MEDS: NITROGLYCERIN 5 MG (0.2 MG/HR) PATCH.TD24 TD SCH (10:09)
[2019-07-10] MEDS: ASPIRIN 81 MG TABLET, ENT COATED PO SCH (10:09)
[2019-07-10] MEDS: NICOTINE 14 MG/24 HR PATCH.TD24 TD SCH (10:09)
[2019-07-10] MEDS: FUROSEMIDE INJ/PF 40 MG/4 ML SDV IV SCH ×2 (10:10→18:35)
[2019-07-10] MEDS: FLUTICASONE NASAL SPRAY 50 MCG/SPRY 120 SPRAY/16 GM NASL SCH ×2 (10:10→22:05)
[2019-07-10] MEDS: POTASSIUM CHLORIDE 10 MEQ TABLET.ER PO SCH (10:10)
--- NOTE | 2019-07-10 11:35 | PDOC PROGRESS REPORT ---
Subjective Progress Note for:: 07/10/19 Subjective:: The patient is seen this morning and he is sitting up in bed with BiPAP, fiO2 45%. He is currently having a productive cough but otherwise no specific complaints. He denies angina, palpitations, presyncope/syncope, lower extremity edema, orthopnea or PND. SKY IRVING is a 33 year old male with history of morbid obesity, sleep apnea and tobacco use who quit 3 days ago who was admitted to the hospital for further evaluation of sinus and chest congestion for 7 to 10 days not associated with fever, palpitations, chest pain. In the emergency room he was found to have clinical and radiographical evidence of heart failure therefore he was admitted and consulted to our service. Today he denies prior history of coronary artery disease as well as family history of cardiac disease. His echocardiogram on 07/08/2019 demonstrated a mildly to moderately depressed LV systolic function with EF between 35 and 40% among other findings. Of note, there was no signific ant valvular disease. Today his main complaint is dizziness and lightheadedness and continues to have some shortness of breath. Reason For Visit: HEART FAILURE Physical Exam Vital Signs: Temp Pulse Resp BP Pulse Ox 97.9 F 95 41 H 145/77 H 95 07/10/19 08:16 07/10/19 08:16 07/10/19 08:16 07/10/19 02:59 07/10/19 08:16 Intake & Output 07/09/19 07/10/19 07/11/19 06:59 06:59 06:59 Intake Total 600 1020 Balance 600 1020 Weight 183.7 kg 179.3 kg Exam: General Appearance: no acute distress, obese, no diaphoresis. Eyes:. Pupils equal round reactive to light, no injection no jaundice. EOMI HENT: atraumatic, BiPAP mask in place currently Neck: Neck exam limited due to straps for BiPAP mask. Lungs: Distant breath sounds with scattered rhonchi bilaterally Cardiovascular: Palpation of heart: normal PMI, no thrills. Auscultation of Heart: normal rate and rhythm, normal S1 and S2, without murmurs, no S3, no S4. Carotid pulses: no bruit, normal amplitude. Abdominal aorta: no bruit, normal amplitude. Radial pulses: normal amplitude. Femoral pulses: no bruit, normal amplitude. Pedal pulses: normal amplitude. Examination of extremities for edema and/or varicosities: no pitting edema; patient with skin changes consistent with chronic lymphedema. Abdomen: normal bowel sounds, soft, non-tender, no masses, no hepatomegaly, no splenomegaly. Musculoskeletal: normal movement of all extremities. Extremities: no clubbing, no cyanosis. Integumentary: warm and dry bilaterally with no ulcers. Psychiatric: awake, alert and oriented x 3. Appropriate mood and affect. Results Laboratory Results: 07/10/19 04:50 07/10/19 04:50 07/10/19 07/10/19 07/10/19 04:50 04:50 06:43 WBC 11.7 H RBC 5.70 H Hgb 17.6 H Hct 53.4 H MCV 94 MCH 31.0 MCHC 33.0 RDW 16.1 H Plt Count 287 Carbonic Acid 2.80 H HCO3/H2CO3 Ratio 16:1 ABG pH 7.31 L ABG pCO2 93.1 H* ABG pO2 70.1 L ABG HCO3 45.7 H ABG O2 Saturation 91.4 L ABG Base Excess 13.3 FiO2 45% Sodium 136.0 L Potassium 5.3 H Chloride 89 L Carbon Dioxide 43 H* Anion Gap 4 L BUN 14 Creatinine 0.52 Est GFR ( Amer) > 60 Glucose 97 Calcium 8.6 07/07/19 07/07/19 07/08/19 17:17 23:18 05:18 Troponin I 0.082 0.067 0.045 NT-Pro-B Natriuret Pep 908 H 07/08/19 07/10/19 10:59 04:50 Troponin I 0.048 NT-Pro-B Natriuret Pep 123 MEDICATION ADMINISTRATION RECORD Generic Name Dose Route Start Last Admin Trade Name Freq PRN Reason Stop Dose Admin Acetaminophen 650 mg 07/07/19 21:34 07/10/19 10:08 Tylenol 325 Mg Tablet PO 08/06/19 21:33 650 mg Q4HP PRN Administration pain or temp greater than 101F Al Hydrox/Mg Hydrox/Simethicone 30 ml 07/07/19 21:34 Maalox Plus Susp 30 Udcup PO 08/06/19 21:33 Q4HP PRN HEARTBURN Albuterol/Ipratropium 3 ml 07/10/19 07:29 07/10/19 09:55 Duoneb 3 Ml Ampul NEB 08/09/19 07:28 3 ml RTQ4HP PRN Administration SHORTNESS OF BREATH Aspirin 81 mg 07/08/19 10:00 07/10/19 10:09 Ecotrin 81 Mg Ec Tablet PO 08/07/19 09:59 81 mg DAILY MIKAYLA Administration Fluticasone Propionate 2 spray 07/07/19 22:00 07/10/19 10:10 Flonase Nasal [place] 50 Mcg/[place] 16 Gm NASL 08/06/19 21:59 1 spr Q12 MIKAYLA Administration Furosemide 40 mg 07/10/19 10:00 07/10/19 10:10 Lasix Inj/Pf 40 Mg/4 Ml Sdv IV 08/09/19 09:59 40 mg Q8A MIKAYLA Administration Heparin Sodium (Porcine) 5,000 unit 07/07/19 22:00 07/10/19 05:24 Heparin Inj 5,000 Units/Ml 1 Ml Vial SUBCUT 08/06/19 21:59 5,000 unit Q8 MIKAYLA Administration Hydralazine HCl 10 mg 07/07/19 21:29 07/08/19 21:08 Apresoline Inj/Pf 20 Mg/1 Ml Sdv IV 08/06/19 21:28 10 mg Q6HP PRN Administration Sbp>160 Magnesium Hydroxide 30 ml 07/07/19 21:34 Milk Of Magnesia 30 Ml Udcup PO 08/06/19 21:33 HSP PRN FOR CONSTIPATION Metoprolol Succinate 25 mg 07/09/19 10:00 07/10/19 10:08 Toprol Xl 25 Mg Tab.Sr PO 08/08/19 09:59 25 mg DAILY MIKAYLA Administration Nicotine 1 each 07/09/19 10:00 07/10/19 10:09 Nicoderm 14 Mg/24 Hr Transdermal Patch TD 08/08/19 09:59 1 each DAILY MIKAYLA Administration Nitroglycerin 1 each 07/07/19 21:45 07/10/19 10:09 Nitro-Dur 5 Mg (0.2 Mg/Hr) Transdermal Patch TD 08/06/19 21:44 Not Given DAILY MIKAYLA Potassium Chloride 40 meq 07/08/19 10:00 07/10/19 10:10 Klor-Con 10 Meq Tablet Er PO 08/07/19 09:59 Not Given DAILY MIKAYLA Sacubitril/Valsartan 1 tab 07/09/19 11:00 07/10/19 10:09 Entresto 24 Mg/26 Mg Tablet PO 08/08/19 10:59 1 tab Q12 MIKAYLA Administration Sodium Chloride 2.5 ml 07/07/19 22:00 07/10/19 05:25 Saline Flush 2.5 Ml Monoject Prefil Syrin IV 08/06/19 21:59 2.5 ml Q8 MIKAYLA Administration Impressions: Chest X-Ray 07/07/19 17:09 IMPRESSION: Cardiomegaly with findings of CHF. Chest CT 07/10/19 00:00 IMPRESSION: Bilateral pneumonia with more focal consolidation in the right lower lobe. Assessment & Plan - Notes Notes: Acute hypoxemic, hypercarbic respiratory failure - chest ct this am with bilateral PNA and no effusions - Management per primary team - currently on BiPAP, fiO2 45% Heart failure with reduced ejection fraction Is this a current diagnosis for this admission?: Yes Plan: Very pleasant 33-year-old male with new onset of heart failure with reduced ejection fraction of unclear etiology however the patient has multiple cardiac risk factors for coronary artery disease. He was deemed to be mildly fluid overloaded on presentation but chest CT and most recent BNP are not consistent with decompensated CHF. -Continue Entresto 24 mg / 26 mg p.o. twice daily as tolerated -lasix increased to TID since yesterday; caution as this no longer appears to be a fluid-overload process; bnp ~[address] with PNA and not chf findings -continue Toprol 25 mg daily as tolerated -Low-sodium diet, less than 2000 mg daily. -Daily weights and chart. -Strict intake and output in chart please. -Daily basic metabolic panel. -Replace electrolytes as needed. HTN - above goal - titrate GDMT per above - goal <130/80 Add lipids to am labs please Tobacco abuse -Patient counseled regarding the importance of tobacco cessation Obesity, BMI 58 -Lifestyle modification advised
--- NOTE | 2019-07-10 22:37 | CDI QUERY ---
CDI Query CDI Review: Dear Provider: To better reflect your patients severity of illness, morbidity, and resource utilization Please specify and document in the Progress Notes and Discharge Summary if you are monitoring / treating / evaluating any of the following conditions: Query Clinical indicators Acute systolic congestive heart failure Acute on chronic systolic congestive heart failure Acute combined systolic / diastolic congestive heart failure Unable to determine Other Per Ui Developer Consult Note: His echocardiogram on 07/08/2019 demonstrated a mildly to moderately depressed LV systolic function with EF between 35 and 40% among other findings. Of note, there was no significant valvular disease Per H&P: Chest X-Ray 07/07/19 17:09 IMPRESSION: Cardiomegaly with findings of CHF. BNP: 908 (4) Congestive heart failure Qualifiers: Heart failure type: unspecified Heart failure chronicity: acute Qualified Code(s): I50.9 - Heart failure, unspecified Is this a current diagnosis for this admission?: Yes Plan: Appears volume overloaded. IV Lasix initiated, BiPAP, follow-up 2D echo The terms probable, suspected, likely, possible or still to be ruled out may be used if you are unable to determine the exact nature of a condition. Thank you for your consideration, Clinical Documentation Physician Advisors HAMZAH Delgado RN, BSN RN Office [phone] Office [phone]
--- NOTE | 2019-07-10 22:51 | CDI QUERY ---
CDI Query CDI Review: Dear Provider: To better reflect your patients severity of illness, morbidity, and resource utilization Please specify and document in the Progress Notes and Discharge Summary if you are monitoring / treating / evaluating any of the following conditions: Query Clinical indicators Aspiration pneumonia Gram Negative pneumonia Gram positive pneumonia Unable to determine Other Chest CT 07/10/19 00:00 IMPRESSION: Bilateral pneumonia with more focal consolidation in the right lower lobe. The terms probable, suspected, likely, possible or still to be ruled out may be used if you are unable to determine the exact nature of a condition. Thank you for your consideration, Clinical Documentation Physician Advisors HAMZAH Delgado RN HAMZAH Gonzales Office [phone] Office [phone]
[2019-07-11] MEDS: FUROSEMIDE INJ/PF 40 MG/4 ML SDV IV SCH ×3 (03:35→22:54)
[2019-07-11] MEDS: HEPARIN SOD (PORCINE) 5,000 UNIT/ML 1 ML VIAL SUBCUT SCH ×3 (05:29→22:54)
[2019-07-11 05:34] LABS: ALBUMIN 3.4 g/dL (3.5-5.0); ALKALINE PHOSPHATASE 126 U/L (38-126); ASPARTATE AMINO TRANSFERASE 57 U/L (17-59); BILIRUBIN,DIRECT 0.2 mg/dL (0.0-0.4); BILIRUBIN,TOTAL 1.1 mg/dL (0.2-1.3); BLOOD UREA NITROGEN 15 mg/dL (7-20); CALCIUM 8.9 mg/dL (8.4-10.2); CHLORIDE 86 mmol/L (98-107); GLUCOSE 104 mg/dL (75-110); TOTAL PROTEIN 7.6 g/dL (6.3-8.2)
[2019-07-11 05:40] LABS: HEMOGLOBIN 19.1 g/dL (13.5-17.0); MEAN CORPUSCULAR HGB CONC 34.1 g/dL (32.0-36.0); MEAN CORPUSCULAR VOLUME 94 fl (80-97); PLATELET COUNT 265 10^3/uL (150-450); RED BLOOD COUNT 5.96 10^6/uL (4.35-5.55); RED CELL DISTRIBUTION WIDTH 15.3 % (11.5-14.0); WHITE BLOOD COUNT 8.9 10^3/uL (4.0-10.5)
[2019-07-11 05:41] LABS: HEMATOCRIT 55.9 % (37.9-51.0)
[2019-07-11 05:45] LABS: ABSOLUTE LYMPHOCYTES# (MANUAL) 1.3 10^3/uL (0.5-4.7); ABSOLUTE MONOCYTES # (MANUAL) 0.4 10^3/uL (0.1-1.4); ANISOCYTOSIS SLIGHT; BASOPHILS % (MANUAL) 0 % (0-2); EOSINOPHILS % (MANUAL) 0 % (0-6); LYMPHOCYTES % (MANUAL) 14 % (13-45); MONOCYTES % (MANUAL) 4 % (3-13); PLATELET COMMENT ADEQUATE; SEGMENTED NEUTROPHILS % (MAN) 81 % (42-78); TOTAL CELLS COUNTED 100
[2019-07-11 06:00] LABS: ANION GAP 5 (5-19); POTASSIUM 4.3 mmol/L (3.6-5.0)
[2019-07-11 06:04] LABS: CARBON DIOXIDE 45 mmol/L (22-30)
[2019-07-11 09:17] LABS: CHOLESTEROL 166.23 mg/dL (0-200); TRIGLYCERIDES 118 mg/dL (<150)
[2019-07-11 09:28] LABS: DIRECT LDL 142 mg/dL (<100)
--- NOTE | 2019-07-11 10:00 | PDOC PROGRESS REPORT ---
Subjective Progress Note for:: 07/11/19 Subjective:: Pt seen and he is sitting up in bed with BiPAP, fiO2 45% and notes he worse with off/on all day yesterday. He is currently having a productive cough but otherwise no specific complaints. He denies angina, palpitations, presyncope/syncope, lower extremity edema, orth opnea or PND. SKY IRVING is a 33 year old male with history of morbid obesity, sleep apnea and tobacco use who quit 3 days ago who was admitted to the hospital for further evaluation of sinus and chest congestion for 7 to 10 days not associated with fever, palpitations, chest pain. In the emergency room he was found to have clinical and radiographical evidence of heart failure therefore he was admitted and consulted to our service. Today he denies prior history of coronary artery disease as well as family history of cardiac disease. His echocardiogram on 07/08/2019 demonstrated a mildly to moderately depressed LV systolic function with EF between 35 and 40% among other findings. Of note, there was no significant valvular disease. Today his main complaint is dizziness and lightheadedness and continues to have some shortness of breath. Reason For Visit: HEART FAILURE Physical Exam Vital Signs: Temp Pulse Resp BP Pulse Ox 98.1 F 89 33 H 133/89 H 95 07/11/19 09:01 07/11/19 09:01 07/11/19 09:01 07/11/19 09:01 07/11/19 09:01 Intake & Output 07/10/19 07/11/19 07/12/19 06:59 06:59 06:59 Intake Total 1020 1385 Balance 1020 1385 Weight 179.3 kg 171.4 kg Exam: General Appearance: no acute distress, obese, no diaphoresis. Eyes:. Pupils equal round reactive to light, no injection no jaundice. EOMI HENT: atraumatic, BiPAP mask in place currently Neck: Neck exam limited due to straps for BiPAP mask. Lungs: Distant breath sounds with scattered rhonchi bilaterally Cardiovascular: Palpation of heart: normal PMI, no thrills. Auscultation of Heart: normal rate and rhythm, normal S1 and S2, without murmurs, no S3, no S4. Carotid pulses: no bruit, normal amplitude. Abdominal aorta: no bruit, normal amplitude. Radial pulses: normal amplitude. Femoral pulses: no bruit, normal amplitude. Pedal pulses: normal amplitude. Examination of extremities for edema and/or varicosities: no pitting edema; patient with skin changes consistent with chronic lymphedema. Abdomen: normal bowel sounds, soft, non-tender, no masses, no hepatomegaly, no splenomegaly. Musculoskeletal: normal movement of all extremities. Extremities: no clubbing, no cyanosis. Integumentary: warm and dry bilaterally with no ulcers. Psychiatric: awake, alert and oriented x 3. Appropriate mood and affect. Results Laboratory Results: 07/11/19 04:35 07/11/19 04:35 07/11/19 07/11/19 07/11/19 04:35 04:35 08:46 WBC 8.9 RBC 5.96 H Hgb 19.1 H Hct 55.9 H MCV 94 MCH 32.0 MCHC 34.1 RDW 15.3 H Plt Count 265 Seg Neutrophils % Not Reportable Sodium 136.0 L Potassium 4.3 D Chloride 86 L Carbon Dioxide 45 H* Anion Gap 5 BUN 15 Creatinine 0.55 Est GFR ( Amer) > 60 Glucose 104 Calcium 8.9 Magnesium 1.8 Total Bilirubin 1.1 AST 57 Alkaline Phosphatase 126 Total Protein 7.6 Albumin 3.4 L Triglycerides 118 Cholesterol 166.23 LDL Cholesterol Direct 142 H VLDL Cholesterol 24.0 HDL Cholesterol 22 L 07/07/19 07/07/19 07/08/19 17:17 23:18 05:18 Troponin I 0.082 0.067 0.045 NT-Pro-B Natriuret Pep 908 H 07/08/19 07/10/19 07/11/19 10:59 04:50 08:46 Troponin I 0.048 NT-Pro-B Natriuret Pep 123 108 MEDICATION ADMINISTRATION RECORD Generic Name Dose Route Start Last Admin Trade Name Freq PRN Reason Stop Dose Admin Acetaminophen 650 mg 07/07/19 21:34 07/10/19 10:08 Tylenol 325 Mg Tablet PO 08/06/19 21:33 650 mg Q4HP PRN Administration pain or temp greater than 101F Al Hydrox/Mg Hydrox/Simethicone 30 ml 07/07/19 21:34 Maalox Plus Susp 30 Udcup PO 08/06/19 21:33 Q4HP PRN HEARTBURN Albuterol/Ipratropium 3 ml 07/10/19 07:29 07/10/19 09:55 Duoneb 3 Ml Ampul NEB 08/09/19 07:28 3 ml RTQ4HP PRN Administration SHORTNESS OF BREATH Aspirin 81 mg 07/08/19 10:00 07/11/19 10:09 Ecotrin 81 Mg Ec Tablet PO 08/07/19 09:59 81 mg DAILY MIKAYLA Administration Fluticasone Propionate 2 spray 07/07/19 22:00 07/11/19 10:11 Flonase Nasal [place] 50 Mcg/[place] 16 Gm NASL 08/06/19 21:59 1 spr Q12 MIKAYLA Administration Furosemide 40 mg 07/11/19 10:00 07/11/19 10:10 Lasix Inj/Pf 40 Mg/4 Ml Sdv IV 08/10/19 09:59 40 mg Q12 MIKAYLA Administration Heparin Sodium (Porcine) 5,000 unit 07/07/19 22:00 07/11/19 05:29 Heparin Inj 5,000 Units/Ml 1 Ml Vial SUBCUT 08/06/19 21:59 Not Given Q8 MIKAYLA Hydralazine HCl 10 mg 07/07/19 21:29 07/08/19 21:08 Apresoline Inj/Pf 20 Mg/1 Ml Sdv IV 08/06/19 21:28 10 mg Q6HP PRN Administration Sbp>160 Magnesium Hydroxide 30 ml 07/07/19 21:34 Milk Of Magnesia 30 Ml Udcup PO 08/06/19 21:33 HSP PRN FOR CONSTIPATION Metoprolol Succinate 25 mg 07/09/19 10:00 07/11/19 10:09 Toprol Xl 25 Mg Tab.Sr PO 08/08/19 09:59 25 mg DAILY MIKAYLA Administration Nicotine 1 each 07/09/19 10:00 07/11/19 10:10 Nicoderm 14 Mg/24 Hr Transdermal Patch TD 08/08/19 09:59 1 each DAILY MIKAYLA Administration Nitroglycerin 1 each 07/07/19 21:45 07/11/19 10:09 Nitro-Dur 5 Mg (0.2 Mg/Hr) Transdermal Patch TD 08/06/19 21:44 1 each DAILY MIKAYLA Administration Potassium Chloride 40 meq 07/08/19 10:00 07/11/19 10:09 Klor-Con 10 Meq Tablet Er PO 08/07/19 09:59 40 meq DAILY MIKAYLA Administration Sacubitril/Valsartan 1 tab 07/09/19 11:00 07/11/19 10:09 Entresto 24 Mg/26 Mg Tablet PO 08/08/19 10:59 1 tab Q12 MIKAYLA Administration Sodium Chloride 2.5 ml 07/07/19 22:00 07/11/19 05:29 Saline Flush 2.5 Ml Monoject Prefil Syrin IV 08/06/19 21:59 Not Given Q8 MIKAYLA Impressions: Chest X-Ray 07/07/19 17:09 IMPRESSION: Cardiomegaly with findings of CHF. Chest CT 07/10/19 00:00 IMPRESSION: Bilateral pneumonia with more focal consolidation in the right lower lobe. Assessment & Plan - Notes Notes: Acute hypoxemic, hypercarbic respiratory failure - chest ct 07/10/19 with bilateral PNA and no effusions - Management per primary team - currently on BiPAP, fiO2 45% Newly diagnosed systolic heart failure, no longer decompensated Very pleasant 33-year-old male with new onset of heart failure with reduced ejection fraction of unclear etiology however the patient has multiple cardiac risk factors for coronary artery disease. He was deemed to be mildly fluid overloaded on presentation but chest CT and most recent BNP are not consistent with decompensated CHF after IV diuresis. -Recommend increasing Entresto to 49/51mg p.o. twice daily as tolerated -As Entresto is increased, recommend decreasing lasix dosing by 1/2 -continue Toprol 25 mg daily as tolerated; titrate to 50mg daily as bp / HR allows -Low-sodium diet, less than 2000 mg daily. -Daily weights and chart. -Strict intake and output in chart please. Poorly documented at this time -Daily basic metabolic panel. -Replace electrolytes as needed. HTN - above goal - titrate GDMT per above - goal <130/80 HLD - recommend adding moderate intensity statin therapy at this time, atorvastatin 20mg qhs Tobacco abuse -Patient counseled regarding the importance of tobacco cessation Obesity, BMI 58 -Lifestyle modification advised
[2019-07-11] MEDS: ASPIRIN 81 MG TABLET, ENT COATED PO SCH (10:09)
[2019-07-11] MEDS: NITROGLYCERIN 5 MG (0.2 MG/HR) PATCH.TD24 TD SCH (10:09)
[2019-07-11] MEDS: METOPROLOL SUCCINATE 25 MG TAB.SR.24H PO SCH (10:09)
[2019-07-11] MEDS: SACUBITRIL/VALSARTAN 24 MG/26 MG TABLET PO SCH ×2 (10:09→22:53)
[2019-07-11] MEDS: POTASSIUM CHLORIDE 10 MEQ TABLET.ER PO SCH (10:09)
[2019-07-11] MEDS: NICOTINE 14 MG/24 HR PATCH.TD24 TD SCH (10:10)
[2019-07-11] MEDS: FLUTICASONE NASAL SPRAY 50 MCG/SPRY 120 SPRAY/16 GM NASL SCH ×2 (10:11→22:53)
--- NOTE | 2019-07-11 11:24 | PDOC PROGRESS REPORT ---
Subjective Progress Note for:: 07/11/19 Reason For Visit: HEART FAILURE 07/11/2019 Patient admitted 4 days ago for shortness of breath. Patient uses no home oxygen. Patient had several days of coughing prior to admission Physical Exam Vital Signs: Temp Pulse Resp BP Pulse Ox 97.6 F 114 H 36 H 137/93 H 97 07/11/19 10:46 07/11/19 10:50 07/11/19 10:46 07/11/19 10:50 07/11/19 10:50 Intake & Output 07/10/19 07/11/19 07/12/19 06:59 06:59 06:59 Intake Total 1020 1385 Balance 1020 1385 Weight 179.3 kg 171.4 kg General appearance: PRESENT: mild distress, other - Patient is using BiPAP Respiratory exam: PRESENT: decreased breath sounds Cardiovascular exam: PRESENT: RRR. ABSENT: diastolic murmur, rubs, systolic murmur Neurological exam: PRESENT: alert, awake, oriented to person, oriented to place, oriented to time, oriented to situation, CN II-XII grossly intact. ABSENT: motor sensory deficit Psychiatric exam: PRESENT: appropriate affect, normal mood. ABSENT: homicidal ideation, suicidal ideation Results Laboratory Results: 07/11/19 04:35 07/11/19 04:35 07/11/19 07/11/19 07/11/19 04:35 04:35 08:46 WBC 8.9 RBC 5.96 H Hgb 19.1 H Hct 55.9 H MCV 94 MCH 32.0 MCHC 34.1 RDW 15.3 H Plt Count 265 Seg Neutrophils % Not Reportable Sodium 136.0 L Potassium 4.3 D Chloride 86 L Carbon Dioxide 45 H* Anion Gap 5 BUN 15 Creatinine 0.55 Est GFR ( Amer) > 60 Glucose 104 Calcium 8.9 Magnesium 1.8 Total Bilirubin 1.1 AST 57 Alkaline Phosphatase 126 Total Protein 7.6 Albumin 3.4 L Triglycerides 118 Cholesterol 166.23 LDL Cholesterol Direct 142 H VLDL Cholesterol 24.0 HDL Cholesterol 22 L 07/07/19 07/07/19 07/08/19 17:17 23:18 05:18 Troponin I 0.082 0.067 0.045 NT-Pro-B Natriuret Pep 908 H 07/08/19 07/10/19 07/11/19 10:59 04:50 08:46 Troponin I 0.048 NT-Pro-B Natriuret Pep 123 108 Impressions: Chest X-Ray 07/07/19 17:09 IMPRESSION: Cardiomegaly with findings of CHF. Chest CT 07/10/19 00:00 IMPRESSION: Bilateral pneumonia with more focal consolidation in the right lower lobe. Assessment and Plan - Diagnosis (1) Pneumonia Is this a current diagnosis for this admission?: Yes (2) Heart failure with reduced ejection fraction Is this a current diagnosis for this admission?: Yes (3) Hypoxemia Is this a current diagnosis for this admission?: Yes (4) Tobacco abuse Is this a current diagnosis for this admission?: Yes - Plan Summary Summary: Assessment and Plan (1) Morbid obesity with alveolar hypoventilation Is this a current diagnosis for this admission?: Yes Plan: Continue nasal cannula oxygen and BiPAP PRN, normal TSH. Will need sleep study outpatient. (2) Polycythemia secondary to smoking Is this a current diagnosis for this admission?: Yes Plan: Supplemental oxygen, tobacco cessation counseling performed and nicotine replacement options ordered. (3) Tobacco abuse Is this a current diagnosis for this admission?: Yes Plan: Tobacco cessation counseling performed, nicotine replacement option ordered. (4) Congestive heart failure Qualifiers: Heart failure type: unspecified Heart failure chronicity: acute Qualified Code(s): I50.9 - Heart failure, unspecified Is this a current diagnosis for this admission?: Yes Plan: Appears volume overloaded. Continue IV Lasix twice daily, echocardiogram showed EF 35-40%. Start Entresto and metoprolol by cardiology. Stress test to be done during this admission. (5) Hypoxemia Is this a current diagnosis for this admission?: Yes Plan: Corrects with supplemental oxygen, multifactorial secondary to morbid obesity hypoventilation and congestive heart failure. (6) Allergic sinusitis Is this a current diagnosis for this admission?: Yes Plan: Flonase ordered 07/11/2019 Temperature 97.9 pulse anywhere from 94-1 22, blood pressure 145/91 Respirations anywhere from 24-46 O2 sat between 90 and 100% but only on BiPAP 6 L. Patient does not use oxygen at home CT scan of the chest done on 330 shows bilateral pneumonia with more focal consolidation in the right lower lobe Plain chest film done on admission 327 showed basilar predominantly patchy parenchymal opacities, which looked like failure On admission white count was 13,400 today is 8.9 BNP was low at 123. BNP today is still low at 108 Blood cultures negative x72 hours Patient was on no Lasix at home I have cut him back today to every 12 hours Lasix 40 mg IV AlSo because of his CT scan of the chest showing pneumonia I have started him on Rocephin and Zithromax. Try to wean him off the BiPAP today and see what his sats are on nasal cannula I have explained all this to the patient and told him that his discharge is probably at least 48 hours away - Time Time Spent with patient: 25-34 minutes
[2019-07-11] MEDS: CEFTRIAXONE 1 GM/D5W RTU 1 GM/50 ML RTUPB IV SCH (12:55)
[2019-07-11] MEDS: AZITHROMYCIN 500 MG in DEXTROSE 5%-WATER 250 ML IV SCH (17:35)
--- NOTE | 2019-07-11 18:51 | Progress Note ---
Provider Note Provider Note: Patient still requiring high flow oxygen of 5 or 6 L to maintain sats in the mid 90s. With 4 L of nasal cannula patient sats are only 90. CT scan done yesterday shows bilateral pneumonia. It has been sick now for about 4 weeks. 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 Patient's illness started off with a cough and has progressed. Patient's flu swabs are negative. Patient will be tested for [place] at 19 and placed in a negative isolation room as a precaution. Continue antibiotic treatment for his pneumonia as well as other supportive care
[2019-07-12] MEDS: HEPARIN SOD (PORCINE) 5,000 UNIT/ML 1 ML VIAL SUBCUT SCH ×3 (06:23→21:36)
[2019-07-12 08:13] LABS: ARTERIAL BLOOD BASE EXCESS 14.7 mmol/L; ARTERIAL BLOOD H2CO3 2.27 mmol/L (1.05-1.35); ARTERIAL BLOOD HCO3 45.2 mmol/L (20-24); ARTERIAL BLOOD O2 SATURATION 87.7 % (94-98); ARTERIAL BLOOD PO2 55.9 mmHg (80-100); ARTERIAL BLOOD TOTAL CO2 47.5 mmol/L (23-27)
[2019-07-12 08:14] LABS: ARTERIAL BLOOD FIO2 45%; ARTERIAL BLOOD PCO2 75.3 mmHg (35-45)
[2019-07-12 09:06] LABS: BLOOD UREA NITROGEN 20 mg/dL (7-20); CALCIUM 8.9 mg/dL (8.4-10.2); CHLORIDE 88 mmol/L (98-107); GLUCOSE 90 mg/dL (75-110); POTASSIUM 5.3 mmol/L (3.6-5.0)
[2019-07-12 09:12] LABS: ANION GAP 8 (5-19); CARBON DIOXIDE 38 mmol/L (22-30)
[2019-07-12] MEDS: POTASSIUM CHLORIDE 10 MEQ TABLET.ER PO SCH (09:48)
[2019-07-12] MEDS: FUROSEMIDE INJ/PF 40 MG/4 ML SDV IV SCH (09:49)
[2019-07-12] MEDS: CEFTRIAXONE 1 GM/D5W RTU 1 GM/50 ML RTUPB IV SCH (09:49)
[2019-07-12] MEDS: NICOTINE 14 MG/24 HR PATCH.TD24 TD SCH (09:49)
[2019-07-12] MEDS: METOPROLOL SUCCINATE 25 MG TAB.SR.24H PO SCH (09:49)
[2019-07-12] MEDS: ASPIRIN 81 MG TABLET, ENT COATED PO SCH (09:49)
[2019-07-12] MEDS: NITROGLYCERIN 5 MG (0.2 MG/HR) PATCH.TD24 TD SCH (09:49)
[2019-07-12] MEDS: SACUBITRIL/VALSARTAN 24 MG/26 MG TABLET PO SCH ×2 (09:51→21:36)
[2019-07-12] MEDS: FLUTICASONE NASAL SPRAY 50 MCG/SPRY 120 SPRAY/16 GM NASL SCH ×2 (09:52→21:36)
[2019-07-12 10:29] LABS: ABSOLUTE EOSINOPHILS # (AUTO) 0.2 10^3/uL (0.0-0.6); ABSOLUTE LYMPHOCYTES (AUTO) 1.1 10^3/uL (0.5-4.7); ABSOLUTE MONOCYTES (AUTO) 0.6 10^3/uL (0.1-1.4); ABSOLUTE NEUT (AUTO) 5.5 10^3/uL (1.7-8.2); BASOPHILS % (AUTO) 0.5 % (0-2); LYMPHOCYTES % (AUTO) 14.9 % (13-45); MONOCYTES % (AUTO) 7.9 % (3-13); PLATELET COUNT 321 10^3/uL (150-450); RED CELL DISTRIBUTION WIDTH 15.7 % (11.5-14.0); SEGMENTED NEUTROPHILS % (AUTO) 73.7 % (42-78); TOTAL CELLS COUNTED % (AUTO) 100 %; WHITE BLOOD COUNT 7.5 10^3/uL (4.0-10.5)
[2019-07-12 10:30] LABS: HEMATOCRIT 58.5 % (37.9-51.0)
[2019-07-12 10:35] LABS: HEMOGLOBIN 20.2 g/dL (13.5-17.0); MEAN CORPUSCULAR HEMOGLOBIN 31.6 pg (27.0-33.4); MEAN CORPUSCULAR VOLUME 92 fl (80-97); RED BLOOD COUNT 6.37 10^6/uL (4.35-5.55)
[2019-07-12 10:36] LABS: MEAN CORPUSCULAR HGB CONC 34.5 g/dL (32.0-36.0)
[2019-07-12] MEDS: AZITHROMYCIN 500 MG in DEXTROSE 5%-WATER 250 ML IV SCH (10:40)
--- NOTE | 2019-07-12 10:44 | PDOC PROGRESS REPORT ---
Subjective Progress Note for:: 07/12/19 Subjective:: The patient's ABG is slightly better. I will decrease Lasix to 40 mg daily. Hold potassium and then decrease daily dose. Recheck labs. Likely obstructive sleep apnea present as well. Reason For Visit: HEART FAILURE Physical Exam Vital Signs: Temp Pulse Resp BP Pulse Ox 97.4 F 94 39 H 108/70 94 07/12/19 08:13 07/12/19 08:13 07/12/19 08:13 07/12/19 08:13 07/12/19 08:13 Intake & Output 07/11/19 07/12/19 07/13/19 06:59 06:59 06:59 Intake Total 1385 1805 50 Balance 1385 1805 50 Weight 171.4 kg 174.4 kg General appearance: PRESENT: no acute distress - Resting comfortably on BiPAP, morbidly obese, well-developed Head exam: PRESENT: atraumatic, normocephalic Ear exam: PRESENT: normal external ear exam. ABSENT: bleeding, drainage Teeth exam: PRESENT: other - BiPAP mask in place Respiratory exam: PRESENT: decreased breath sounds - Difficult to auscultate due to body habitus, rales - Rales versus atelectasis, unlabored. ABSENT: accessory muscle use, tachypnea, wheezes Cardiovascular exam: PRESENT: RRR, +S1, +S2 GI/Abdominal exam: PRESENT: normal bowel sounds, soft, other - Protuberant abdomen. ABSENT: tenderness Rectal exam: PRESENT: deferred Neurological exam: PRESENT: alert, awake, oriented to person, oriented to place, oriented to time, oriented to situation, CN II-XII grossly intact Psychiatric exam: PRESENT: appropriate affect. ABSENT: agitated, anxious Focused psych exam: ABSENT: delusional, paranoid, restlessness Skin exam: PRESENT: dry, normal color, warm. ABSENT: rash Results Laboratory Results: 07/12/19 10:10 07/12/19 07:48 07/12/19 07/12/19 07/12/19 07:48 07:48 08:05 WBC Cancelled RBC Cancelled Hgb Cancelled Hct Cancelled MCV Cancelled MCH Cancelled MCHC Cancelled RDW Cancelled Plt Count Cancelled Seg Neutrophils % Cancelled Carbonic Acid 2.27 H HCO3/H2CO3 Ratio 19:1 ABG pH 7.40 ABG pCO2 75.3 H* ABG pO2 55.9 L ABG HCO3 45.2 H ABG O2 Saturation 87.7 L ABG Base Excess 14.7 FiO2 45% Sodium 133.9 L Potassium 5.3 H Chloride 88 L Carbon Dioxide 38 H Anion Gap 8 BUN 20 Creatinine 0.60 Est GFR ( Amer) > 60 Glucose 90 Calcium 8.9 07/12/19 10:10 WBC 7.5 RBC 6.37 H Hgb 20.2 H* Hct 58.5 H MCV 92 MCH 31.6 MCHC 34.5 RDW 15.7 H Plt Count 321 Seg Neutrophils % 73.7 Carbonic Acid HCO3/H2CO3 Ratio ABG pH ABG pCO2 ABG pO2 ABG HCO3 ABG O2 Saturation ABG Base Excess FiO2 Sodium Potassium Chloride Carbon Dioxide Anion Gap BUN Creatinine Est GFR ( Amer) Glucose Calcium 07/07/19 07/07/19 07/08/19 17:17 23:18 05:18 Troponin I 0.082 0.067 0.045 NT-Pro-B Natriuret Pep 908 H 07/08/19 07/10/19 07/11/19 10:59 04:50 08:46 Troponin I 0.048 NT-Pro-B Natriuret Pep 123 108 Impressions: Chest X-Ray 07/07/19 17:09 IMPRESSION: Cardiomegaly with findings of CHF. Chest CT 07/10/19 00:00 IMPRESSION: Bilateral pneumonia with more focal consolidation in the right lower lobe. Assessment and Plan - Diagnosis (1) Pneumonia Qualifiers: Pneumonia type: due to unspecified organism Laterality: bilateral Is this a current diagnosis for this admission?: Yes Plan: July 12, 2019 The patient is being treated for community-acquired pneumonia with ceftriaxone and azithromycin. However there is suspicion of a viral etiology. Please see below. Continue antibiotics at this time. (2) Heart failure with reduced ejection fraction Is this a current diagnosis for this admission?: Yes Plan: July 12, 2019 The patient had ejection fraction of 35 to 40%. Etiology of his acute heart failure is unknown. He does have several risk factors for heart disease. Co ntinue therapy with diuretic, beta-armin and Entresto. (3) Acute respiratory failure with hypoxia Is this a current diagnosis for this admission?: Yes Plan: July 12, 2019 The patient is currently on BiPAP. He was exhibiting increased work of breathing and required increased oxygen to keep saturations above 90%. He appears to be stable this morning. Will attempt to wean from BiPAP. Etiology is likely infectious and congestive heart failure. (4) Polycythemia secondary to smoking Is this a current diagnosis for this admission?: Yes Plan: Supplemental oxygen, tobacco cessation counseling performed and nicotine replacement options ordered. July 12, 2019 Encourage tobacco cessation. If this is accomplished his polycythemia will resolve over time. No requirement for phlebotomy at this time. (5) Tobacco abuse Is this a current diagnosis for this admission?: Yes Plan: July 12, 2019 Nicotine patch (6) Allergic sinusitis Is this a current diagnosis for this admission?: Yes Plan: July 12, 2019 Continue Flonase (7) Morbid obesity with alveolar hypoventilation Is this a current diagnosis for this admission?: Yes Plan: July 12, 2019 The patient's BMI is 56.8. Not only is this contributing to obesity hypoventilation but likely sleep apnea. (8) Encounter for observation for suspected exposure to other biological agents ruled out Is this a current diagnosis for this admission?: Yes Plan: July 12, 2019 Patient tested for Covid-19 virus. Results pending. - Plan Summary Summary: Assessment and Plan (1) Morbid obesity with alveolar hypoventilation Is this a current diagnosis for this admission?: Yes Plan: Continue nasal cannula oxygen and BiPAP PRN, normal TSH. Will need sleep study outpatient. (2) Polycythemia secondary to smoking Is this a current diagnosis for this admission?: Yes Plan: Supplemental oxygen, tobacco cessation counseling performed and nicotine replacement options ordered. (3) Tobacco abuse Is this a current diagnosis for this admission?: Yes Plan: Tobacco cessation counseling performed, nicotine replacement option ordered. (4) Congestive heart failure Qualifiers: Heart failure type: unspecified Heart failure chronicity: acute Qualified Code(s): I50.9 - Heart failure, unspecified Is this a current diagnosis for this admission?: Yes Plan: Appears volume overloaded. Continue IV Lasix twice daily, echocardiogram showed EF 35-40%. Start Entresto and metoprolol by cardiology. Stress test to be done during this admission. (5) Hypoxemia Is this a current diagnosis for this admission?: Yes Plan: Corrects with supplemental oxygen, multifactorial secondary to morbid obesity hypoventilation and congestive heart failure. (6) Allergic sinusitis Is this a current diagnosis for this admission?: Yes Plan: Flonase ordered 07/11/2019 Temperature 97.9 pulse anywhere from 94-1 22, blood pressure 145/91 Respirations anywhere from 24-46 O2 sat between 90 and 100% but only on BiPAP 6 L. Patient does not use oxygen at home CT scan of the chest done on 330 shows bilateral pneumonia with more focal consolidation in the right lower lobe Plain chest film done on admission 327 showed basilar predominantly patchy parenchymal opacities, which looked like failure On admission white count was 13,400 today is 8.9 BNP was low at 123. BNP today is still low at 108 Blood cultures negative x72 hours Patient was on no Lasix at home I have cut him back today to every 12 hours Lasix 40 mg IV AlSo because of his CT scan of the chest showing pneumonia I have started him on Rocephin and Zithromax. Try to wean him off the BiPAP today and see what his sats are on nasal cannula I have explained all this to the patient and told him that his discharge is probably at least 48 hours away - Time Time Spent with patient: 15-24 minutes Medications reviewed and adjusted accordingly: Yes Anticipated discharge: Home
--- NOTE | 2019-07-12 11:49 | PDOC PROGRESS REPORT ---
Subjective Progress Note for:: 07/12/19 Subjective:: SKY IRVING is a 33 year old male with history of morbid obesity, sleep apnea and tobacco use who quit 3 days ago who was admitted to the hospital for further evaluation of sinus and chest congestion for 7 to 10 days not associated with fever, palpitations, chest pain. In the emergency room he was found to have clinical and radiographical evidence of heart failure therefore he was admitted and consulted to our service. Today he denies prior history of coronary artery disease as well as family history of cardiac disease. His echocardiogram on 07/08/2019 demonstrated a mildly to moderately depressed LV systolic function with EF between 35 and 40% among other findings. Of note, there was no significant valvular disease. The patient has been diuresed and his CT scan and bnp are no longer consistent with decompensated CHF. The patient is now being r/o for COVID 19. He is tolerating guideline directed medical therapy at this time. Pt was moved to a negative pressure isolation room since seeing him yesterday. I did not enter the room this morning. Reason For Visit: HEART FAILURE Physical Exam Vital Signs: Temp Pulse Resp BP Pulse Ox 97.4 F 94 39 H 108/70 94 07/12/19 08:13 07/12/19 08:13 07/12/19 08:13 07/12/19 08:13 07/12/19 08:13 Intake & Output 07/11/19 07/12/19 07/13/19 06:59 06:59 06:59 Intake Total 1385 1805 50 Balance 1385 1805 50 Weight 171.4 kg 174.4 kg Exam: not performed today Results Laboratory Results: 07/12/19 10:10 07/12/19 07:48 07/12/19 07/12/19 07/12/19 07:48 07:48 08:05 WBC Cancelled RBC Cancelled Hgb Cancelled Hct Cancelled MCV Cancelled MCH Cancelled MCHC Cancelled RDW Cancelled Plt Count Cancelled Seg Neutrophils % Cancelled Carbonic Acid 2.27 H HCO3/H2CO3 Ratio 19:1 ABG pH 7.40 ABG pCO2 75.3 H* ABG pO2 55.9 L ABG HCO3 45.2 H ABG O2 Saturation 87.7 L ABG Base Excess 14.7 FiO2 45% Sodium 133.9 L Potassium 5.3 H Chloride 88 L Carbon Dioxide 38 H Anion Gap 8 BUN 20 Creatinine 0.60 Est GFR ( Amer) > 60 Glucose 90 Calcium 8.9 07/12/19 10:10 WBC 7.5 RBC 6.37 H Hgb 20.2 H* Hct 58.5 H MCV 92 MCH 31.6 MCHC 34.5 RDW 15.7 H Plt Count 321 Seg Neutrophils % 73.7 Carbonic Acid HCO3/H2CO3 Ratio ABG pH ABG pCO2 ABG pO2 ABG HCO3 ABG O2 Saturation ABG Base Excess FiO2 Sodium Potassium Chloride Carbon Dioxide Anion Gap BUN Creatinine Est GFR ( Amer) Glucose Calcium 07/07/19 07/07/19 07/08/19 17:17 23:18 05:18 Troponin I 0.082 0.067 0.045 NT-Pro-B Natriuret Pep 908 H 07/08/19 07/10/19 07/11/19 10:59 04:50 08:46 Troponin I 0.048 NT-Pro-B Natriuret Pep 123 108 MEDICATION ADMINISTRATION RECORD Generic Name Dose Route Start Last Admin Trade Name Freq PRN Reason Stop Dose Admin Acetaminophen 650 mg 07/07/19 21:34 07/10/19 10:08 Tylenol 325 Mg Tablet PO 08/06/19 21:33 650 mg Q4HP PRN Administration pain or temp greater than 101F Al Hydrox/Mg Hydrox/Simethicone 30 ml 07/07/19 21:34 Maalox Plus Susp 30 Udcup PO 08/06/19 21:33 Q4HP PRN HEARTBURN Albuterol/Ipratropium 3 ml 07/10/19 07:29 07/10/19 09:55 Duoneb 3 Ml Ampul NEB 08/09/19 07:28 3 ml RTQ4HP PRN Administration SHORTNESS OF BREATH Aspirin 81 mg 07/08/19 10:00 07/12/19 09:49 Ecotrin 81 Mg Ec Tablet PO 08/07/19 09:59 81 mg DAILY MIKAYLA Administration Fluticasone Propionate 2 spray 07/07/19 22:00 07/12/19 09:52 Flonase Nasal [place] 50 Mcg/[place] 16 Gm NASL 08/06/19 21:59 2 spr Q12 MIKAYLA Administration Furosemide 40 mg 07/13/19 10:00 Lasix Inj/Pf 40 Mg/4 Ml Sdv IV 08/12/19 09:59 DAILY MIKAYLA Heparin Sodium (Porcine) 5,000 unit 07/07/19 22:00 07/12/19 06:23 Heparin Inj 5,000 Units/Ml 1 Ml Vial SUBCUT 08/06/19 21:59 5,000 unit Q8 MIKAYLA Administration Hydralazine HCl 10 mg 07/07/19 21:29 07/08/19 21:08 Apresoline Inj/Pf 20 Mg/1 Ml Sdv IV 08/06/19 21:28 10 mg Q6HP PRN Administration Sbp>160 Ceftriaxone Sodium/Dextrose 1 gm in 50 mls @ 100 mls/hr 07/11/19 12:00 07/12/19 10:24 Rocephin Rtu 1 Gm/D5w 50 Ml Premix IV 07/18/19 11:59 Infused DAILY MIKAYLA Infusion Azithromycin 500 mg/ Dextrose 250 mls @ 250 mls/hr 07/11/19 18:00 07/12/19 10:40 IV 07/18/19 17:59 250 mls/hr DAILY MIKAYLA 250 mls/hr Administration Magnesium Hydroxide 30 ml 07/07/19 21:34 Milk Of Magnesia 30 Ml Udcup PO 08/06/19 21:33 HSP PRN FOR CONSTIPATION Metoprolol Succinate 25 mg 07/09/19 10:00 07/12/19 09:49 Toprol Xl 25 Mg Tab.Sr PO 08/08/19 09:59 25 mg DAILY MIKAYLA Administration Nicotine 1 each 07/09/19 10:00 07/12/19 09:49 Nicoderm 14 Mg/24 Hr Transdermal Patch TD 08/08/19 09:59 1 each DAILY MIKAYLA Administration Nitroglycerin 1 each 07/07/19 21:45 07/12/19 09:49 Nitro-Dur 5 Mg (0.2 Mg/Hr) Transdermal Patch TD 08/06/19 21:44 1 each DAILY MIKAYLA Administration Potassium Chloride 20 meq 07/14/19 10:00 Klor-Con 10 Meq Tablet Er PO 08/13/19 09:59 DAILY MIKAYLA Sacubitril/Valsartan 1 tab 07/09/19 11:00 07/12/19 09:51 Entresto 24 Mg/26 Mg Tablet PO 08/08/19 10:59 1 tab Q12 MIKAYLA Administration Sodium Chloride 2.5 ml 07/07/19 22:00 07/12/19 06:23 Saline Flush 2.5 Ml Monoject Prefil Syrin IV 08/06/19 21:59 2.5 ml Q8 MIKAYLA Administration Impressions: Chest X-Ray 07/07/19 17:09 IMPRESSION: Cardiomegaly with findings of CHF. Chest CT 07/10/19 00:00 IMPRESSION: Bilateral pneumonia with more focal consolidation in the right lower lobe. Assessment & Plan - Notes Notes: Acute hypoxemic, hypercarbic respiratory failure - chest ct 07/10/19 with bilateral PNA and no effusions; now being r/o for COVID 19 - Management per primary team - currently on BiPAP, fiO2 45% Newly diagnosed systolic heart failure, no longer decompensated, BNP 108 Very pleasant 33-year-old male with new onset of heart failure with reduced ejection fraction of unclear etiology however the patient has multiple cardiac risk factors for coronary artery disease. He was deemed to be mildly fluid overloaded on presentation but chest CT and most recent BNP are not consistent with decompensated CHF after IV diuresis. -bp 108/70 today; continue Entresto 24/26mg p.o. twice daily as tolerated -agree with decreasing lasix to once daily iv -continue Toprol 25 mg daily as tolerated -Low-sodium diet, less than 2000 mg daily. -Daily weights and chart. -Strict intake and output in chart please. Poorly documented at this time -Daily basic metabolic panel. -Replace electrolytes as needed. -No further inpatient evaluation is planned at this time HTN - at goal today - titrate GDMT per above - goal <130/80 HLD - recommend adding and discharging home on moderate intensity statin therapy at this time, atorvastatin 20mg qhs Tobacco abuse -Patient counseled regarding the importance of tobacco cessation Obesity, BMI 58 -Lifestyle modification advised We will sign-off at this time. The patient is encouraged to follow-up with cardiology [place] w/in 7 days of hospital discharge.
[2019-07-12] MEDS: ACETAMINOPHEN 325 MG TABLET PO PRN (21:36)
[2019-07-13] MEDS: HEPARIN SOD (PORCINE) 5,000 UNIT/ML 1 ML VIAL SUBCUT SCH ×3 (05:12→21:11)
[2019-07-13 05:36] LABS: PLATELET COUNT 251 10^3/uL (150-450); RED CELL DISTRIBUTION WIDTH 15.6 % (11.5-14.0); WHITE BLOOD COUNT 6.1 10^3/uL (4.0-10.5)
[2019-07-13 06:03] LABS: BLOOD UREA NITROGEN 18 mg/dL (7-20); CALCIUM 8.8 mg/dL (8.4-10.2); GLUCOSE 103 mg/dL (75-110); POTASSIUM 4.7 mmol/L (3.6-5.0)
[2019-07-13 06:07] LABS: HEMATOCRIT 55.9 % (37.9-51.0)
[2019-07-13 06:08] LABS: MEAN CORPUSCULAR HEMOGLOBIN 31.9 pg (27.0-33.4); MEAN CORPUSCULAR HGB CONC 34.1 g/dL (32.0-36.0); MEAN CORPUSCULAR VOLUME 94 fl (80-97)
[2019-07-13 06:09] LABS: CHLORIDE 92 mmol/L (98-107); RED BLOOD COUNT 5.98 10^6/uL (4.35-5.55)
[2019-07-13 06:13] LABS: ABSOLUTE LYMPHOCYTES# (MANUAL) 0.9 10^3/uL (0.5-4.7); ABSOLUTE MONOCYTES # (MANUAL) 0.4 10^3/uL (0.1-1.4); ANION GAP 3 (5-19); BAND NEUTROPHILS % (MANUAL) 1 % (3-5); BASOPHILS % (MANUAL) 0 % (0-2); CARBON DIOXIDE 39 mmol/L (22-30); EOSINOPHILS % (MANUAL) 5 % (0-6); LYMPHOCYTES % (MANUAL) 11 % (13-45); MONOCYTES % (MANUAL) 7 % (3-13); SEGMENTED NEUTROPHILS % (MAN) 73 % (42-78); TOTAL CELLS COUNTED 100
[2019-07-13 06:15] LABS: ANISOCYTOSIS SLIGHT; HEMOGLOBIN 19.1 g/dL (13.5-17.0); PLATELET COMMENT ADEQUATE; TEAR DROP CELLS SLIGHT
[2019-07-13] MEDS ORDERED: FUROSEMIDE INJ/PF 40 MG/4 ML SDV IV SCH (10:00)
[2019-07-13] MEDS: CEFTRIAXONE 1 GM/D5W RTU 1 GM/50 ML RTUPB IV SCH (10:22)
[2019-07-13] MEDS: METOPROLOL SUCCINATE 25 MG TAB.SR.24H PO SCH (10:23)
[2019-07-13] MEDS: NITROGLYCERIN 5 MG (0.2 MG/HR) PATCH.TD24 TD SCH (10:23)
[2019-07-13] MEDS: NICOTINE 14 MG/24 HR PATCH.TD24 TD SCH (10:23)
[2019-07-13] MEDS: ASPIRIN 81 MG TABLET, ENT COATED PO SCH (10:23)
[2019-07-13] MEDS: FUROSEMIDE INJ/PF 40 MG/4 ML SDV IV SCH ×2 (10:23→17:14)
[2019-07-13] MEDS: AZITHROMYCIN 500 MG in DEXTROSE 5%-WATER 250 ML IV SCH (10:23)
[2019-07-13] MEDS: SACUBITRIL/VALSARTAN 24 MG/26 MG TABLET PO SCH ×2 (10:24→21:11)
[2019-07-13] MEDS: FLUTICASONE NASAL SPRAY 50 MCG/SPRY 120 SPRAY/16 GM NASL SCH ×2 (10:24→21:12)
--- NOTE | 2019-07-13 17:19 | PDOC PROGRESS REPORT ---
Subjective Progress Note for:: 07/13/19 Subjective:: The patient is sitting in the chair on nasal cannula today. He appears much better. He reports that he feels much better. Reason For Visit: HEART FAILURE Physical Exam Vital Signs: Temp Pulse Resp BP Pulse Ox 97.9 F 99 12 103/72 93 07/13/19 12:26 07/13/19 14:00 07/13/19 12:26 07/13/19 12:26 07/13/19 12:26 Intake & Output 07/12/19 07/13/19 07/14/19 06:59 06:59 06:59 Intake Total 1805 2050 780 Output Total 150 Balance 1805 1900 780 Weight 174.4 kg 174.4 kg General appearance: PRESENT: no acute distress, cooperative, morbidly obese, well-developed Head exam: PRESENT: atraumatic, normocephalic Eye exam: PRESENT: conjunctiva pink. ABSENT: scleral icterus Ear exam: PRESENT: normal external ear exam. ABSENT: bleeding, drainage Mouth exam: PRESENT: moist, tongue midline Respiratory exam: PRESENT: symmetrical, unlabored, wheezes - Still with faint bilateral expiratory wheezes. ABSENT: accessory muscle use, prolonged expiratory phas, rales, rhonchi, tachypnea Cardiovascular exam: PRESENT: RRR, +S1, +S2 GI/Abdominal exam: PRESENT: normal bowel sounds, soft, other - Protuberant abdomen. ABSENT: guarding Rectal exam: PRESENT: deferred Musculoskeletal exam: PRESENT: normal inspection. ABSENT: deformity Neurological exam: PRESENT: alert, awake, oriented to person, oriented to place, oriented to time, oriented to situation, CN II-XII grossly intact. ABSENT: altered Psychiatric exam: PRESENT: appropriate affect. ABSENT: agitated, anxious Focused psych exam: ABSENT: delusional, restlessness Skin exam: PRESENT: dry, normal color, warm. ABSENT: rash Results Laboratory Results: 07/13/19 05:25 07/13/19 05:25 07/13/19 07/13/19 05:25 05:25 WBC 6.1 RBC 5.98 H Hgb 19.1 H Hct 55.9 H MCV 94 MCH 31.9 MCHC 34.1 RDW 15.6 H Plt Count 251 Seg Neutrophils % Not Reportable Sodium 134.3 L Potassium 4.7 Chloride 92 L Carbon Dioxide 39 H Anion Gap 3 L BUN 18 Creatinine 0.61 Est GFR ( Amer) > 60 Glucose 103 Calcium 8.8 Magnesium 2.1 07/07/19 17:59 Blood Blood Culture - Final NO GROWTH IN 5 DAYS 07/07/19 17:17 Blood Blood Culture - Final NO GROWTH IN 5 DAYS 07/07/19 07/07/19 07/08/19 17:17 23:18 05:18 Troponin I 0.082 0.067 0.045 NT-Pro-B Natriuret Pep 908 H 07/08/19 07/10/19 07/11/19 10:59 04:50 08:46 Troponin I 0.048 NT-Pro-B Natriuret Pep 123 108 Impressions: Chest X-Ray 07/07/19 17:09 IMPRESSION: Cardiomegaly with findings of CHF. Chest CT 07/10/19 00:00 IMPRESSION: Bilateral pneumonia with more focal consolidation in the right lower lobe. Assessment and Plan - Diagnosis (1) Pneumonia Qualifiers: Pneumonia type: due to unspecified organism Laterality: bilateral Is this a current diagnosis for this admission?: Yes Plan: July 12, 2019 The patient is being treated for community-acquired pneumonia with ceftriaxone and azithromycin. However there is suspicion of a viral etiology. Please see below. Continue antibiotics at this time. July 13, 2019 Patient continues to improve. Continue antibiotics at this time. (2) Heart failure with reduced ejection fraction Is this a current diagnosis for this admission?: Yes Plan: July 12, 2019 The patient had ejection fraction of 35 to 40%. Etiology of his acute heart failure is unknown. He does have several risk factors for heart disease. Continue therapy with diuretic, beta-armin and Entresto. July 13, 2019 Patient appears adequately diuresed. Appreciate cardiology input. We will continue current medication regimen and follow-up with cardiology as an outpatient. (3) Acute respiratory failure with hypoxia Is this a current diagnosis for this admission?: Yes Plan: July 12, 2019 The patient is currently on BiPAP. He was exhibiting increased work of breathi ng and required increased oxygen to keep saturations above 90%. He appears to be stable this morning. Will attempt to wean from BiPAP. Etiology is likely infectious and congestive heart failure. July 13, 2019 BiPAP not required last night. Continue to slowly wean from oxygen. (4) Polycythemia secondary to smoking Is this a current diagnosis for this admission?: Yes Plan: Supplemental oxygen, tobacco cessation counseling performed and nicotine replacement options ordered. July 12, 2019 Encourage tobacco cessation. If this is accomplished his polycythemia will resolve over time. No requirement for phlebotomy at this time. July 13, 2019 Still markedly polycythemic with a hemoglobin of 19. Continue to monitor and encourage smoking cessation (5) Tobacco abuse Is this a current diagnosis for this admission?: Yes Plan: July 12, 2019 Nicotine patch July 13, 2019 Continue nicotine therapy and encourage cessation (6) Allergic sinusitis Is this a current diagnosis for this admission?: Yes Plan: July 12, 2019 Continue Flonase July 13, 2019 No change at this time (7) Morbid obesity with alveolar hypoventilation Is this a current diagnosis for this admission?: Yes Plan: July 12, 2019 The patient's BMI is 56.8. Not only is this contributing to obesity hypoventilation but likely sleep apnea. July 13, 2019 Eventually the patient will benefit from aggressive dieting as well as initiating an exercise program. (8) Encounter for observation for suspected exposure to other biological agents ruled out Is this a current diagnosis for this admission?: Yes Plan: July 12, 2019 Patient tested for Covid-19 virus. Results pending. July 13, 2019 Covid-19 results still pending - Plan Summary Summary: Assessment and Plan (1) Morbid obesity with alveolar hypoventilation Is this a current diagnosis for this admission?: Yes Plan: Continue nasal cannula oxygen and BiPAP PRN, normal TSH. Will need sleep study outpatient. (2) Polycythemia secondary to smoking Is this a current diagnosis for this admission?: Yes Plan: Supplemental oxygen, tobacco cessation counseling performed and nicotine replacement options ordered. (3) Tobacco abuse Is this a current diagnosis for this admission?: Yes Plan: Tobacco cessation counseling performed, nicotine replacement option ordered. (4) Congestive heart failure Qualifiers: Heart failure type: unspecified Heart failure chronicity: acute Qualified Code(s): I50.9 - Heart failure, unspecified Is this a current diagnosis for this admission?: Yes Plan: Appears volume overloaded. Continue IV Lasix twice daily, echocardiogram showed EF 35-40%. Start Entresto and metoprolol by cardiology. Stress test to be done during this admission. (5) Hypoxemia Is this a current diagnosis for this admission?: Yes Plan: Corrects with supplemental oxygen, multifactorial secondary to morbid obesity hypoventilation and congestive heart failure. (6) Allergic sinusitis Is this a current diagnosis for this admission?: Yes Plan: Flonase ordered 07/11/2019 Temperature 97.9 pulse anywhere from 94-1 22, blood pressure 145/91 Respirations anywhere from 24-46 O2 sat between 90 and 100% but only on BiPAP 6 L. Patient does not use oxygen at home CT scan of the chest done on 330 shows bilateral pneumonia with more focal consolidation in the right lower lobe Plain chest film done on admission 327 showed basilar predominantly patchy parenchymal opacities, which looked like failure On admission white count was 13,400 today is 8.9 BNP was low at 123. BNP today is still low at 108 Blood cultures negative x72 hours Patient was on no Lasix at home I have cut him back today to every 12 hours Lasix 40 mg IV AlSo because of his CT scan of the chest showing pneumonia I have started him on Rocephin and Zithromax. Try to wean him off the BiPAP today and see what his sats are on nasal cannula I have explained all this to the patient and told him that his discharge is probably at least 48 hours away - Time Time Spent with patient: 15-24 minutes Medications reviewed and adjusted accordingly: Yes Anticipated discharge: Home
[2019-07-13] MEDS: ATORVASTATIN CALCIUM 20 MG TABLET PO SCH (21:11)
[2019-07-14] MEDS: HEPARIN SOD (PORCINE) 5,000 UNIT/ML 1 ML VIAL SUBCUT SCH ×3 (05:39→21:35)
[2019-07-14 07:11] LABS: BLOOD UREA NITROGEN 20 mg/dL (7-20); CALCIUM 8.7 mg/dL (8.4-10.2); CHLORIDE 93 mmol/L (98-107); GLUCOSE 101 mg/dL (75-110); POTASSIUM 4.5 mmol/L (3.6-5.0)
[2019-07-14 07:22] LABS: ANION GAP 5 (5-19); CARBON DIOXIDE 36 mmol/L (22-30)
[2019-07-14] MEDS: METOPROLOL SUCCINATE 25 MG TAB.SR.24H PO SCH (09:07)
[2019-07-14] MEDS: FUROSEMIDE INJ/PF 40 MG/4 ML SDV IV SCH ×2 (09:07→17:15)
[2019-07-14] MEDS: NITROGLYCERIN 5 MG (0.2 MG/HR) PATCH.TD24 TD SCH (09:07)
[2019-07-14] MEDS: ASPIRIN 81 MG TABLET, ENT COATED PO SCH (09:07)
[2019-07-14] MEDS: NICOTINE 14 MG/24 HR PATCH.TD24 TD SCH (09:07)
[2019-07-14] MEDS: SACUBITRIL/VALSARTAN 24 MG/26 MG TABLET PO SCH ×2 (09:08→21:21)
[2019-07-14] MEDS: POTASSIUM CHLORIDE 10 MEQ TABLET.ER PO SCH (09:08)
[2019-07-14] MEDS: CEFTRIAXONE 1 GM/D5W RTU 1 GM/50 ML RTUPB IV SCH (09:11)
[2019-07-14] MEDS: FLUTICASONE NASAL SPRAY 50 MCG/SPRY 120 SPRAY/16 GM NASL SCH (09:17)
[2019-07-14] MEDS: AZITHROMYCIN 500 MG in DEXTROSE 5%-WATER 250 ML IV SCH (10:03)
--- NOTE | 2019-07-14 12:59 | PDOC PROGRESS REPORT ---
Subjective Progress Note for:: 07/14/19 Subjective:: The patient is Covid-19 negative The patient is on BiPAP this morning. He is asking about going home but still requires 3 to 4 L nasal cannula. With his Covid-19 status negative he will transfer back to [facility] and continue treatment for heart failure. Reason For Visit: HEART FAILURE Physical Exam Vital Signs: Temp Pulse Resp BP Pulse Ox 97.9 F 91 24 H 106/60 92 07/14/19 12:00 07/14/19 12:00 07/14/19 12:00 07/14/19 12:00 07/14/19 12:00 Intake & Output 07/13/19 07/14/19 07/15/19 06:59 06:59 06:59 Intake Total 2050 1762 800 Output Total 150 Balance 1900 1762 800 Weight 174.4 kg 170.1 kg 170.1 kg General appearance: PRESENT: no acute distress, cooperative, morbidly obese Head exam: PRESENT: atraumatic, normocephalic, other - BiPAP mask in place Ear exam: PRESENT: normal external ear exam. ABSENT: bleeding, drainage Respiratory exam: PRESENT: clear to auscultation marky, decreased breath sounds - Due to body habitus, symmetrical, unlabored. ABSENT: rhonchi, tachypnea, wheezes Cardiovascular exam: PRESENT: RRR, +S1, +S2, other - Soft heart sounds due to body habitus GI/Abdominal exam: PRESENT: normal bowel sounds, soft, other - Protuberant abdomen. ABSENT: tenderness Rectal exam: PRESENT: deferred Gentrourinary exam: ABSENT: indwelling catheter Extremities exam: PRESENT: full ROM Musculoskeletal exam: PRESENT: ambulatory, normal inspection. ABSENT: deformity Neurological exam: PRESENT: alert, awake, oriented to person, oriented to place, oriented to time, oriented to situation, CN II-XII grossly intact. ABSENT: altered Psychiatric exam: PRESENT: appropriate affect. ABSENT: agitated, anxious Focused psych exam: ABSENT: delusional, paranoid, restlessness Skin exam: PRESENT: dry, normal color, warm. ABSENT: rash Results Laboratory Results: 07/13/19 05:25 07/14/19 06:35 07/14/19 06:35 Sodium 134.1 L Potassium 4.5 Chloride 93 L Carbon Dioxide 36 H Anion Gap 5 BUN 20 Creatinine 0.62 Est GFR ( Amer) > 60 Glucose 101 Calcium 8.7 Magnesium 2.0 07/07/19 07/07/19 07/08/19 17:17 23:18 05:18 Troponin I 0.082 0.067 0.045 NT-Pro-B Natriuret Pep 908 H 07/08/19 07/10/19 07/11/19 10:59 04:50 08:46 Troponin I 0.048 NT-Pro-B Natriuret Pep 123 108 Impressions: Chest X-Ray 07/07/19 17:09 IMPRESSION: Cardiomegaly with findings of CHF. Chest CT 07/10/19 00:00 IMPRESSION: Bilateral pneumonia with more focal consolidation in the right lower lobe. Assessment and Plan - Diagnosis (1) Pneumonia Qualifiers: Pneumonia type: due to unspecified organism Laterality: bilateral Is this a current diagnosis for this admission?: Yes Plan: July 12, 2019 The patient is being treated for community-acquired pneumonia with ceftriaxone and azithromycin. However there is suspicion of a viral etiology. Please see below. Continue antibiotics at this time. July 13, 2019 Patient continues to improve. Continue antibiotics at this time. 07/14/2019 Antibiotics through July 17. Likely community-acquired pneumonia with complications of heart failure. Still requiring oxygen. (2) Heart failure with reduced ejection fraction Is this a current diagnosis for this admission?: Yes Plan: July 12, 2019 The patient had ejection fraction of 35 to 40%. Etiology of his acute heart failure is unknown. He does have several risk factors for heart disease. Continue therapy with diuretic, beta-armin and Entresto. July 13, 2019 Patient appears adequately diuresed. Appreciate cardiology input. We will continue current medication regimen and follow-up with cardiology as an outpatient. 07/14/2019 Appreciate cardiology's continued input. Stable on current regimen. His fluid balance yesterday was still net +800 mL. We may need to adjust his diuretics. He is already on metoprolol and Entresto. (3) Acute respiratory failure with hypoxia Is this a current diagnosis for this admission?: Yes Plan: July 12, 2019 The patient is currently on BiPAP. He was exhibiting increased work of breathing and required increased oxygen to keep saturations above 90%. He ap pears to be stable this morning. Will attempt to wean from BiPAP. Etiology is likely infectious and congestive heart failure. July 13, 2019 BiPAP not required last night. Continue to slowly wean from oxygen. 07/14/2019 Still requiring supplemental oxygen. Continue to wean with a goal of room air. (4) Polycythemia secondary to smoking Is this a current diagnosis for this admission?: Yes Plan: Supplemental oxygen, tobacco cessation counseling performed and nicotine replacement options ordered. July 12, 2019 Encourage tobacco cessation. If this is accomplished his polycythemia will resolve over time. No requirement for phlebotomy at this time. July 13, 2019 Still markedly polycythemic with a hemoglobin of 19. Continue to monitor and encourage smoking cessation July 13 Continue to monitor hemoglobin. Slowly improving. Continue aspirin therapy (5) Tobacco abuse Is this a current diagnosis for this admission?: Yes Plan: July 12, 2019 Nicotine patch July 13, 2019 Continue nicotine therapy and encourage cessation (6) Allergic sinusitis Is this a current diagnosis for this admission?: Yes Plan: July 12, 2019 Continue Flonase July 13, 2019 No change at this time (7) Morbid obesity with alveolar hypoventilation Is this a current diagnosis for this admission?: Yes Plan: July 12, 2019 The patient's BMI is 56.8. Not only is this contributing to obesity hypoventilation but likely sleep apnea. July 13, 2019 Eventually the patient will benefit from aggressive dieting as well as initiating an exercise program. July 13 We will obtain nocturnal oximetry. Likely has sleep apnea, nocturnal hypoxia and already has polycythemia (8) Encounter for observation for suspected exposure to other biological agents ruled out Is this a current diagnosis for this admission?: Yes Plan: July 12, 2019 Patient tested for Covid-19 virus. Results pending. July 13, 2019 Covid-19 results still pending July 13 Covid-19 negative - Plan Summary Summary: Assessment and Plan (1) Morbid obesity with alveolar hypoventilation Is this a current diagnosis for this admission?: Yes Plan: Continue nasal cannula oxygen and BiPAP PRN, normal TSH. Will need sleep study outpatient. (2) Polycythemia secondary to smoking Is this a current diagnosis for this admission?: Yes Plan: Supplemental oxygen, tobacco cessation counseling performed and nicotine replacement options ordered. (3) Tobacco abuse Is this a current diagnosis for this admission?: Yes Plan: Tobacco cessation counseling performed, nicotine replacement option ordered. (4) Congestive heart failure Qualifiers: Heart failure type: unspecified Heart failure chronicity: acute Qualified Code(s): I50.9 - Heart failure, unspecified Is this a current diagnosis for this admission?: Yes Plan: Appears volume overloaded. Continue IV Lasix twice daily, echocardiogram showed EF 35-40%. Start Entresto and metoprolol by cardiology. Stress test to be done during this admission. (5) Hypoxemia Is this a current diagnosis for this admission?: Yes Plan: Corrects with supplemental oxygen, multifactorial secondary to morbid obesity hypoventilation and congestive heart failure. (6) Allergic sinusitis Is this a current diagnosis for this admission?: Yes Plan: Flonase ordered 07/11/2019 Temperature 97.9 pulse anywhere from 94-1 22, blood pressure 145/91 Respirations anywhere from 24-46 O2 sat between 90 and 100% but only on BiPAP 6 L. Patient does not use oxygen at home CT scan of the chest done on 330 shows bilateral pneumonia with more focal consolidation in the right lower lobe Plain chest film done on admission 327 showed basilar predominantly patchy parenchymal opacities, which looked like failure On admission white count was 13,400 today is 8.9 BNP was low at 123. BNP today is still low at 108 Blood cultures negative x72 hours Patient was on no Lasix at home I have cut him back today to every 12 hours Lasix 40 mg IV AlSo because of his CT scan of the chest showing pneumonia I have started him on Rocephin and Zithromax. Try to wean him off the BiPAP today and see what his sats are on nasal cannula I have explained all this to the patient and told him that his discharge is probably at least 48 hours away - Time Time Spent with patient: 15-24 minutes Medications reviewed and adjusted accordingly: Yes Anticipated discharge: Home
[2019-07-14] MEDS: ATORVASTATIN CALCIUM 20 MG TABLET PO SCH (21:30)
[2019-07-15] MEDS: FLUTICASONE NASAL SPRAY 50 MCG/SPRY 120 SPRAY/16 GM NASL SCH ×3 (00:21→21:36)
[2019-07-15] MEDS: HEPARIN SOD (PORCINE) 5,000 UNIT/ML 1 ML VIAL SUBCUT SCH ×3 (05:52→21:36)
[2019-07-15 05:55] LABS: HEMOGLOBIN 18.8 g/dL (13.5-17.0); MEAN CORPUSCULAR HEMOGLOBIN 31.9 pg (27.0-33.4); MEAN CORPUSCULAR HGB CONC 34.1 g/dL (32.0-36.0); MEAN CORPUSCULAR VOLUME 94 fl (80-97); PLATELET COUNT 233 10^3/uL (150-450); RED BLOOD COUNT 5.88 10^6/uL (4.35-5.55); RED CELL DISTRIBUTION WIDTH 15.9 % (11.5-14.0); WHITE BLOOD COUNT 6.6 10^3/uL (4.0-10.5)
[2019-07-15 06:20] LABS: BLOOD UREA NITROGEN 23 mg/dL (7-20); CALCIUM 8.9 mg/dL (8.4-10.2); CARBON DIOXIDE 38 mmol/L (22-30); CHLORIDE 93 mmol/L (98-107); GLUCOSE 98 mg/dL (75-110); POTASSIUM 4.6 mmol/L (3.6-5.0)
[2019-07-15 06:23] LABS: ANION GAP 2 (5-19)
[2019-07-15] MEDS: POTASSIUM CHLORIDE 10 MEQ TABLET.ER PO SCH (09:32)
[2019-07-15] MEDS: FUROSEMIDE INJ/PF 40 MG/4 ML SDV IV SCH ×2 (09:32→17:10)
[2019-07-15] MEDS: ASPIRIN 81 MG TABLET, ENT COATED PO SCH (09:32)
[2019-07-15] MEDS: METOPROLOL SUCCINATE 25 MG TAB.SR.24H PO SCH (09:32)
[2019-07-15] MEDS: SACUBITRIL/VALSARTAN 24 MG/26 MG TABLET PO SCH ×2 (09:33→21:35)
[2019-07-15] MEDS: NITROGLYCERIN 5 MG (0.2 MG/HR) PATCH.TD24 TD SCH (09:34)
[2019-07-15] MEDS: NICOTINE 14 MG/24 HR PATCH.TD24 TD SCH (09:34)
[2019-07-15] MEDS: AZITHROMYCIN 500 MG in DEXTROSE 5%-WATER 250 ML IV SCH (09:34)
[2019-07-15] MEDS: CEFTRIAXONE 1 GM/D5W RTU 1 GM/50 ML RTUPB IV SCH (09:34)
--- NOTE | 2019-07-15 13:04 | PDOC PROGRESS REPORT ---
Subjective Progress Note for:: 07/15/19 Subjective:: No adverse events overnight. No new complaints. His SPO2 was in the low 90s on oxygen per nasal cannula. He wants to go home but he is not been able to show that he can maintain his SPO2 on room air at rest and while walking. He said he would pay for oxygen at home if he needed it. Reason For Visit: HEART FAILURE Physical Exam Vital Signs: Temp Pulse Resp BP Pulse Ox 98.0 F 100 24 H 124/80 91 L 07/15/19 11:18 07/15/19 12:36 07/15/19 11:18 07/15/19 12:36 07/15/19 12:36 Pulse Oximeter Nocturnal Start: 07/14/19 12: 55 Freq: RTQ4 Status: Complete Protocol: Document 07/15/19 04:00 DBE (Rec: 07/15/19 06:13 DBE [id number]) Nocturnal Pulse Oximetry Equipment Usage Equipment in Use Oxygen Delivery Method (includes room Bi-pap air) O2 Sat by Pulse Oximetry (92-100) 28 Continuous Pulse Oximeter Set Up No Continuous SpO2 Discontinued No Continuous SpO2 Machine # 97 Intake & Output 07/14/19 07/15/19 07/16/19 06:59 06:59 06:59 Intake Total 1762 1720 50 Output Total 0 Balance 1762 1720 50 Weight 170.1 kg 171.1 kg General appearance: PRESENT: no acute distress, cooperative, disheveled, morbidly obese Respiratory exam: PRESENT: decreased breath sounds, symmetrical, unlabored. ABSENT: accessory muscle use, chest wall tenderness, prolonged expiratory phas, retraction, rhonchi, tachypnea, wheezes Cardiovascular exam: PRESENT: RRR, +S1, +S2 Pulses: PRESENT: normal carotid pulses Vascular exam: PRESENT: normal capillary refill GI/Abdominal exam: PRESENT: normal bowel sounds, soft. ABSENT: distended, guarding, rebound, tenderness Extremities exam: PRESENT: +1 edema. ABSENT: clubbing, pedal edema Musculoskeletal exam: PRESENT: normal inspection. ABSENT: deformity Neurological exam: PRESENT: alert, awake, oriented to person, oriented to place, oriented to situation Psychiatric exam: PRESENT: appropriate affect, normal mood Skin exam: PRESENT: dry, warm Results Laboratory Results: 07/15/19 05:49 07/15/19 05:49 07/15/19 07/15/19 05:49 05:49 WBC 6.6 RBC 5.88 H Hgb 18.8 H Hct 55.0 H MCV 94 MCH 31.9 MCHC 34.1 RDW 15.9 H Plt Count 233 Sodium 133.4 L Potassium 4.6 Chloride 93 L Carbon Dioxide 38 H Anion Gap 2 L BUN 23 H Creatinine 0.66 Est GFR ( Amer) > 60 Glucose 98 Calcium 8.9 Magnesium 1.9 07/07/19 07/07/19 07/08/19 17:17 23:18 05:18 Troponin I 0.082 0.067 0.045 NT-Pro-B Natriuret Pep 908 H 07/08/19 07/10/19 07/11/19 10:59 04:50 08:46 Troponin I 0.048 NT-Pro-B Natriuret Pep 123 108 Impressions: Chest X-Ray 07/07/19 17:09 IMPRESSION: Cardiomegaly with findings of CHF. Chest CT 07/10/19 00:00 IMPRESSION: Bilateral pneumonia with more focal consolidation in the right lower lobe. Assessment and Plan - Diagnosis (1) Acute respiratory failure with hypoxia Is this a current diagnosis for this admission?: Yes Plan: Currently stable on 2 L nasal cannula. We will continue to diurese and and evaluate him periodically on room air (2) Congestive heart failure Qualifiers: Heart failure type: systolic Heart failure chronicity: acute Qualified Code(s): I50.21 - Acute systolic (congestive) heart failure Is this a current diagnosis for this admission?: No Plan: Responding to diuresis. We will make sure he is medically optimized and has outpatient cardiology follow-up. Suspect he also has con commitment pulmonary hypertension. He could benefit from a sleep study. (3) Morbid obesity with alveolar hypoventilation Is this a current diagnosis for this admission?: Yes Plan: I have encouraged weight loss. Also encouraged that he quit smoking and will be evaluated by a sleep study. (4) Polycythemia secondary to smoking Is this a current diagnosis for this admission?: Yes Plan: I strongly encourage smoking cessation - Plan Summary Summary: Assessment and Plan (1) Morbid obesity with alveolar hypoventilation Is this a current diagnosis for this admission?: Yes Plan: Continue nasal cannula oxygen and BiPAP PRN, normal TSH. Will need sleep study outpatient. (2) Polycythemia secondary to smoking Is this a current diagnosis for this admission?: Yes Plan: Supplemental oxygen, tobacco cessation counseling performed and nicotine replacement options ordered. (3) Tobacco abuse Is this a current diagnosis for this admission?: Yes Plan: Tobacco cessation counseling performed, nicotine replacement option ordered. (4) Congestive heart failure Qualifiers: Heart failure type: unspecified Heart failure chronicity: acute Qualified Code(s): I50.9 - Heart failure, unspecified Is this a current diagnosis for this admission?: Yes Plan: Appears volume overloaded. Continue IV Lasix twice daily, echocardiogram showed EF 35-40%. Start Entresto and metoprolol by cardiology. Stress test to be done during this admission. (5) Hypoxemia Is this a current diagnosis for this admission?: Yes Plan: Corrects with supplemental oxygen, multifactorial secondary to morbid obesity hypoventilation and congestive heart failure. (6) Allergic sinusitis Is this a current diagnosis for this admission?: Yes Plan: Flonase ordered 07/11/2019 Temperature 97.9 pulse anywhere from 94-1 22, blood pressure 145/91 Respirations anywhere from 24-46 O2 sat between 90 and 100% but only on BiPAP 6 L. Patient does not use oxygen at home CT scan of the chest done on 330 shows bilateral pneumonia with more focal consolidation in the right lower lobe Plain chest film done on admission 327 showed basilar predominantly patchy parenchymal opacities, which looked like failure On admission white count was 13,400 today is 8.9 BNP was low at 123. BNP today is still low at 108 Blood cultures negative x72 hours Patient was on no Lasix at home I have cut him back today to every 12 hours Lasix 40 mg IV AlSo because of his CT scan of the chest showing pneumonia I have started him on Rocephin and Zithromax. Try to wean him off the BiPAP today and see what his sats are on nasal cannula I have explained all this to the patient and told him that his discharge is probably at least 48 hours away - Time Time Spent with patient: 15-24 minutes
[2019-07-15] MEDS: ATORVASTATIN CALCIUM 20 MG TABLET PO SCH (21:35)
[2019-07-16] MEDS: HEPARIN SOD (PORCINE) 5,000 UNIT/ML 1 ML VIAL SUBCUT SCH ×2 (05:50→13:11)
[2019-07-16] MEDS: FUROSEMIDE INJ/PF 40 MG/4 ML SDV IV SCH (09:55)
[2019-07-16] MEDS: METOPROLOL SUCCINATE 25 MG TAB.SR.24H PO SCH (09:55)
[2019-07-16] MEDS: SACUBITRIL/VALSARTAN 24 MG/26 MG TABLET PO SCH (09:55)
[2019-07-16] MEDS: ASPIRIN 81 MG TABLET, ENT COATED PO SCH (09:55)
[2019-07-16] MEDS: POTASSIUM CHLORIDE 10 MEQ TABLET.ER PO SCH (09:55)
[2019-07-16] MEDS: NICOTINE 14 MG/24 HR PATCH.TD24 TD SCH (09:56)
[2019-07-16] MEDS: AZITHROMYCIN 500 MG in DEXTROSE 5%-WATER 250 ML IV SCH (09:56)
[2019-07-16] MEDS: FLUTICASONE NASAL SPRAY 50 MCG/SPRY 120 SPRAY/16 GM NASL SCH (09:56)
[2019-07-16] MEDS: CEFTRIAXONE 1 GM/D5W RTU 1 GM/50 ML RTUPB IV SCH (09:56)
[2019-07-16] MEDS: NITROGLYCERIN 5 MG (0.2 MG/HR) PATCH.TD24 TD SCH (10:01)
[2019-07-16 13:27] VITALS: BP 138/108
--- NOTE | 2019-07-16 15:16 | PDOC DISCHARGE SUMMARY ---
Impression - Admit/DC Date/PCP Admission Date/Primary Care Provider: 07/07/19 21:43 Discharge Date: 07/16/19 - Discharge Diagnosis (1) Acute respiratory failure with hypoxia Is this a current diagnosis for this admission?: Yes (2) Congestive heart failure Is this a current diagnosis for this admission?: Yes (3) Morbid obesity with alveolar hypoventilation Is this a current diagnosis for this admission?: Yes (4) Polycythemia secondary to smoking Is this a current diagnosis for this admission?: Yes - Assessment Summary: Assessment and Plan (1) Morbid obesity with alveolar hypoventilation Is this a current diagnosis for this admission?: Yes Plan: Continue nasal cannula oxygen and BiPAP PRN, normal TSH. Will need sleep study outpatient. (2) Polycythemia secondary to smoking Is this a current diagnosis for this admission?: Yes Plan: Supplemental oxygen, tobacco cessation counseling performed and nicotine replacement options ordered. (3) Tobacco abuse Is this a current diagnosis for this admission?: Yes Plan: Tobacco cessation counseling performed, nicotine replacement option ordered. (4) Congestive heart failure Qualifiers: Heart failure type: unspecified Heart failure chronicity: acute Qualified Code(s): I50.9 - Heart failure, unspecified Is this a current diagnosis for this admission?: Yes Plan: Appears volume overloaded. Continue IV Lasix twice daily, echocardiogram showed EF 35-40%. Start Entresto and metoprolol by cardiology. Stress test to be done during this admission. (5) Hypoxemia Is this a current diagnosis for this admission?: Yes Plan: Corrects with supplemental oxygen, multifactorial secondary to morbid obesity hypoventilation and congestive heart failure. (6) Allergic sinusitis Is this a current diagnosis for this admission?: Yes Plan: Flonase ordered 07/11/2019 Temperature 97.9 pulse anywhere from 94-1 22, blood pressure 145/91 Respirations anywhere from 24-46 O2 sat between 90 and 100% but only on BiPAP 6 L. Patient does not use oxygen at home CT scan of the chest done on 330 shows bilateral pneumonia with more focal consolidation in the right lower lobe Plain chest film done on admission 327 showed basilar predominantly patchy parenchymal opacities, which looked like failure On admission white count was 13,400 today is 8.9 BNP was low at 123. BNP today is still low at 108 Blood cultures negative x72 hours Patient was on no Lasix at home I have cut him back today to every 12 hours Lasix 40 mg IV AlSo because of his CT scan of the chest showing pneumonia I have started him on Rocephin and Zithromax. Try to wean him off the BiPAP today and see what his sats are on nasal cannula I have explained all this to the patient and told him that his discharge is probably at least 48 hours away - Additional Information Resuscitation Status: Full Code Discharge Diet: Cardiac Discharge Activity: Activity As Tolerated, Balance Activity w/Rest, Weigh Daily Referrals: [facility] [Outside] ([facility] is not taking appointments right now.) Prescriptions: Sacubitril/Valsartan [Entresto 24 mg/26 mg Tablet] 1 tab PO Q12 #60 tablet Potassium Chloride [Klor-Con 10 Meq Tablet ER] 20 meq PO DAILY #60 tablet.er Furosemide [Lasix 40 mg Tablet] 40 mg PO QAM #30 tablet Atorvastatin Calcium [Lipitor 20 mg Tablet] 20 mg PO QHS #30 tablet Home Medications: Aspirin [Ecotrin 81 mg EC Tablet] 81 mg PO DAILY tabec 07/16/19 Atorvastatin Calcium [Lipitor 20 mg Tablet] 20 mg PO QHS #30 tablet 07/16/19 Furosemide [Lasix 40 mg Tablet] 40 mg PO QAM #30 tablet 07/16/19 Metoprolol Succinate [Toprol Xl 25 mg Tab.sr] 25 mg PO DAILY tab.sr.24h 07/16/19 Potassium Chloride [Klor-Con 10 Meq Tablet ER] 20 meq PO DAILY #60 tablet.er 07/16/19 Sacubitril/Valsartan [Entresto 24 mg/26 mg Tablet] 1 tab PO Q12 #60 tablet 07/16/19 History of Present Illiness History of Present Illness: SKY IRVING is a 33 year old male with a past medical history of morbid obesity and tobacco dependence who describes 7 to 10 days of sinus and chest congestion prompting him to use multiple shba-[id number] agents with minimal relief. He denies fever, palpitations, chest pain, nausea vomiting but admits a intermittent cough with yellow sputum. In the emergency department he is found to have tachypnea, hypoxia, hyponatremia, elevated BNP and pulmonary vascular c ongestion. He received IV Lasix, BiPAP and referred to the hospitalist for admission. He denies fever, exposure to known covert patients or recent travel. Hospital Course Hospital Course: He wound up having an EF of 35 to 40% on echocardiogram. Most nights he had to use BiPAP while asleep to keep his oxygen levels up, he said he slept a lot better with that. We could not get him off oxygen, we got him down to about 2 L to keep his SPO2 above 90% at rest. We have medically optimized him and have given him information about following up with the community clinic. He is in the process of applying for Medicaid. He said he could buy the oxygen [id number] that he needs at home. I have advised him to get a sleep study as soon as he gets confirmation of his insurance. He tested negative for coronavirus. His labs and examination were reassuring he was discharged in stable condition. Physical Exam Vital Signs: Temp Pulse Resp BP Pulse Ox 97.8 F 95 16 138/108 H 87 L 07/16/19 13:26 07/16/19 14:00 07/16/19 13:26 07/16/19 13:26 07/16/19 13:26 Pulse Oximeter Nocturnal Start: 07/14/19 12:55 Freq: RTQ4 Status: Complete Protocol: Document 07/15/19 04:00 DBE (Rec: 07/15/19 06:13 DBE [id number]) Nocturnal Pulse Oximetry Equipment Usage Equipment in Use Oxygen Delivery Method (includes room Bi-pap air) O2 Sat by Pulse Oximetry (92-100) 28 Continuous Pulse Oximeter Set Up No Continuous SpO2 Discontinued No Continuous SpO2 Machine # 97 Intake & Output 07/15/19 07/16/19 07/17/19 06:59 06:59 06:59 Intake Total 1720 780 780 Output Total 0 100 Balance 1720 680 780 Weight 171.1 kg 170.2 kg General appearance: PRESENT: no acute distress, cooperative, disheveled, morbidly obese Respiratory exam: PRESENT: decreased breath sounds, symmetrical, unlabored. ABSENT: accessory muscle use, chest wall tenderness, prolonged expiratory phas, retraction, rhonchi, tachypnea, wheezes Cardiovascular exam: PRESENT: RRR, +S1, +S2 Pulses: PRESENT: normal carotid pulses Vascular exam: PRESENT: normal capillary refill GI/Abdominal exam: PRESENT: normal bowel sounds, soft. ABSENT: distended, guarding, rebound, tenderness Extremities exam: PRESENT: +1 edema. ABSENT: clubbing, pedal edema Musculoskeletal exam: PRESENT: normal inspection. ABSENT: deformity Neurological exam: PRESENT: alert, awake, oriented to person, oriented to place, oriented to situation Psychiatric exam: PRESENT: appropriate affect, normal mood Skin exam: PRESENT: dry, warm Results Laboratory Results: WBC 6.6 10^3/uL (4.0-10.5) 07/15/19 05:49 RBC 5.88 10^6/uL (4.35-5.55) H 07/15/19 05:49 Hgb 18.8 g/dL (13.5-17.0) H 07/15/19 05:49 Hct 55.0 % (37.9-51.0) H 07/15/19 05:49 MCV 94 fl (80-97) 07/15/19 05:49 MCH 31.9 pg (27.0-33.4) 07/15/19 05:49 MCHC 34.1 g/dL (32.0-36.0) 07/15/19 05:49 RDW 15.9 % (11.5-14.0) H 07/15/19 05:49 Plt Count 233 10^3/uL (150-450) 07/15/19 05:49 Lymph % (Auto) Not Reportable 07/13/19 05:25 [place] % (Auto) Not Reportable 07/13/19 05:25 Eos % (Auto) Not Reportable 07/13/19 05:25 Baso % (Auto) Not Reportable 07/13/19 05:25 Absolute Neuts (auto) Not Reportable 07/13/19 05:25 Absolute Lymphs (auto) Not Reportable 07/13/19 05:25 Absolute Monos (auto) Not Reportable 07/13/19 05:25 Absolute Eos (auto) Not Reportable 07/13/19 05:25 Absolute Basos (auto) Not Reportable 07/13/19 05:25 Total Counted 100 07/13/19 05:25 Seg Neutrophils % Not Reportable 07/13/19 05:25 Seg Neuts % (Manual) 73 % (42-78) 07/13/19 05:25 Band Neutrophils % 1 % (3-5) L 07/13/19 05:25 Lymphocytes % (Manual) 11 % (13-45) L 07/13/19 05:25 Atypical Lymphs % 3 % (0) 07/13/19 05:25 Monocytes % (Manual) 7 % (3-13) 07/13/19 05:25 Eosinophils % (Manual) 5 % (0-6) 07/13/19 05:25 Basophils % (Manual) 0 % (0-2) 07/13/19 05:25 Abs Neuts (Manual) 4.5 10^3/uL (1.7-8.2) 07/13/19 05:25 Abs Lymphs (Manual) 0.9 10^3/uL (0.5-4.7) 07/13/19 05:25 Abs Monocytes (Manual) 0.4 10^3/uL (0.1-1.4) 07/13/19 05:25 Absolute Eos (Manual) 0.3 10^3/uL (0.0-0.6) 07/13/19 05:25 Abs Basophils (Manual) 0.0 10^3/uL (0.0-0.2) 07/13/19 05:25 Platelet Estimate Cancelled 07/12/19 07:48 Platelet Comment ADEQUATE 07/13/19 05:25 Anisocytosis SLIGHT 07/13/19 05:25 Tear Drop Cells SLIGHT 07/13/19 05:25 Carbonic Acid 2.27 mmol/L (1.05-1.35) H 07/12/19 08:05 HCO3/H2CO3 Ratio 19:1 07/12/19 08:05 ABG pH 7.40 (7.35-7.45) 07/12/19 08:05 ABG pCO2 75.3 mmHg (35-45) H* 07/12/19 08:05 ABG pO2 55.9 mmHg (80-100) L 07/12/19 08:05 ABG HCO3 45.2 mmol/L (20-24) H 07/12/19 08:05 ABG Total CO2 47.5 mmol/L (23-27) H 07/12/19 08:05 ABG O2 Saturation 87.7 % (94-98) L 07/12/19 08:05 ABG Base Excess 14.7 mmol/L 07/12/19 08:05 FiO2 45% 07/12/19 08:05 Sodium 133.4 mmol/L (137-145) L 07/15/19 05:49 Potassium 4.6 mmol/L (3.6-5.0) 07/15/19 05:49 Chloride 93 mmol/L (98-107) L 07/15/19 05:49 Carbon Dioxide 38 mmol/L (22-30) H 07/15/19 05:49 Anion Gap 2 (5-19) L 07/15/19 05:49 BUN 23 mg/dL (7-20) H 07/15/19 05:49 Creatinine 0.66 mg/dL (0.52-1.25) 07/15/19 05:49 Est GFR ( Amer) > 60 (>60) 07/15/19 05:49 Est GFR (Non-Af Amer) Cancelled 07/08/19 10:59 Est GFR (MDRD) Non-Af > 60 (>60) 07/15/19 05:49 Glucose 98 mg/dL (75-110) 07/15/19 05:49 Calcium 8.9 mg/dL (8.4-10.2) 07/15/19 05:49 Magnesium 1.9 mg/dL (1.6-2.3) 07/15/19 05:49 Total Bilirubin 1.1 mg/dL (0.2-1.3) 07/11/19 04:35 Direct Bilirubin 0.2 mg/dL (0.0-0.4) 07/11/19 04:35 Neonat Total Bilirubin Not Reportable 07/11/19 04:35 Neonat Direct Bilirubin Not Reportable 07/11/19 04:35 Neonat Indirect Bili Not Reportable 07/11/19 04:35 AST 57 U/L (17-59) 07/11/19 04:35 ALT 45 U/L (<50) 07/11/19 04:35 Alkaline Phosphatase 126 U/L (38-126) 07/11/19 04:35 Troponin I 0.048 ng/mL 07/08/19 10:59 NT-Pro-B Natriuret Pep 108 pg/mL (<125) 07/11/19 08:46 Total Protein 7.6 g/dL (6.3-8.2) 07/11/19 04:35 Albumin 3.4 g/dL (3.5-5.0) L 07/11/19 04:35 Triglycerides 118 mg/dL (<150) 07/11/19 08:46 Cholesterol 166.23 mg/dL (0-200) 07/11/19 08:46 LDL Cholesterol Direct 142 mg/dL (<100) H 07/11/19 08:46 VLDL Cholesterol 24.0 mg/dL (10-31) 07/11/19 08:46 HDL Cholesterol 22 mg/dL (>40) L 07/11/19 08:46 EGFR Cancelled 07/08/19 10:59 TSH 3.14 uIU/mL (0.47-4.68) 07/07/19 17:17 Urine Color YELLOW 07/07/19 18:51 Urine Appearance CLEAR 07/07/19 18:51 Urine pH 6.0 (5.0-9.0) 07/07/19 18:51 Ur Specific [place] 1.008 07/07/19 18:51 Urine Protein >=500 mg/dL (NEGATIVE) H 07/07/19 18:51 Urine Glucose (UA) NEGATIVE mg/dL (NEGATIVE) 07/07/19 18:51 Urine Ketones NEGATIVE mg/dL (NEGATIVE) 07/07/19 18:51 Urine Blood SMALL (NEGATIVE) H 07/07/19 18:51 Urine Nitrite NEGATIVE (NEGATIVE) 07/07/19 18:51 Urine Bilirubin NEGATIVE (NEGATIVE) 07/07/19 18:51 Urine Urobilinogen 2.0 mg/dL (<2.0) H 07/07/19 18:51 Ur Leukocyte Esterase NEGATIVE (NEGATIVE) 07/07/19 18:51 Urine WBC (Auto) 3 /HPF 07/07/19 18:51 Urine RBC (Auto) 1 /HPF 07/07/19 18:51 Squamous Epi Cells Auto 1 /HPF 07/07/19 18:51 Urine Mucus (Auto) RARE /LPF 07/07/19 18:51 Urine Ascorbic Acid NEGATIVE (NEGATIVE) 07/07/19 18:51 Urine Opiates Screen NEGATIVE 07/07/19 18:51 Urine Methadone Screen NEGATIVE 07/07/19 18:51 Ur Barbiturates Screen NEGATIVE 07/07/19 18:51 Ur Phencyclidine Scrn NEGATIVE 07/07/19 18:51 Ur Amphetamines Screen UNCONFIRMED POSITIVE 07/07/19 18:51 U Benzodiazepines Scrn NEGATIVE 07/07/19 18:51 Urine Cocaine Screen NEGATIVE 07/07/19 18:51 U Marijuana (THC) Screen NEGATIVE 07/07/19 18:51 COVID-19 Source NASOPHARYNGEAL 07/11/19 19:00 COVID-19 (THAD) NOT DETECTED 07/11/19 19:00 Influenza A (Rapid) NEGATIVE (NEGATIVE) 07/07/19 17:32 Influenza B (Rapid) NEGATIVE (NEGATIVE) 07/07/19 17:32 Slides for Path Review Cancelled 07/12/19 07:48 07/07/19 07/07/19 07/08/19 17:17 23:18 05:18 Troponin I 0.082 0.067 0.045 NT-Pro-B Natriuret Pep 908 H 07/08/19 07/10/19 07/11/19 10:59 04:50 08:46 Troponin I 0.048 NT-Pro-B Natriuret Pep 123 108 Impressions: Chest X-Ray 07/07/19 17:09 IMPRESSION: Cardiomegaly with findings of CHF. Chest CT 07/10/19 00:00 IMPRESSION: Bilateral pneumonia with more focal consolidation in the right lower lobe. Plan Time Spent: Greater than 30 Minutes Stroke Is this a Stroke Patient?: No Acute Heart Failure - Is this a Heart Failure Patient?: Yes Documentation of LVEF assessment?: Yes LVEF < 40%?: Yes-if yes answer questions a through e a) Discharged on ACEI?: N/A Discharged on ARNI b) Discharges on ARB?: N/A-Discharged on ARNI c) Discharged on ARNI?: Yes d) Discharged on evidence-based Beta armin(carvedilol, sustained release metoprolol succinate, or bisoprolol)?: Yes e) For LVEF <35%, discharged on Aldosterone antagonist?: N/A (LVEF > or = 35%) 3. Anticoagulant therapy for permanect/persistent/paraoxysmal Afib or Aflutter: N/A Follow-up Appointment scheduled within 7 days?: Yes
== END 2019-07-16 15:20 | disposition home or self-care (01) | DRG 205 ==
LOC: ER 17:07 → EH 21:43 → 3W 07-08 00:07 → 5 07-11 21:18 → 3W 07-14 11:28
PROVIDERS: ADMIT Internal Medicine; ATTEND Hospitalist
PROC: 5A09457 Assistance with Respiratory Ventilation, 24-96 Consecutive Hours, Continuous Positive Airway Pressure (ICD-10-PCS; principal; 2019-07-07)
DX: E66.2 Morbid (severe) obesity with alveolar hypoventilation (principal); I50.21 Acute systolic (congestive) heart failure; J96.21 Acute and chronic respiratory failure with hypoxia; J18.9 Pneumonia, unspecified organism; Z68.43 Body mass index [BMI] 50.0-59.9, adult; E87.1 Hypo-osmolality and hyponatremia; F17.210 Nicotine dependence, cigarettes, uncomplicated; D75.1 Secondary polycythemia; J30.9 Allergic rhinitis, unspecified; J45.909 Unspecified asthma, uncomplicated; Z99.81 Dependence on supplemental oxygen; Z79.82 Long term (current) use of aspirin; Z79.899 Other long term (current) drug therapy; Z03.818 Encounter for observation for suspected exposure to other biological agents ruled out
CPT/HCPCS: 36415; 36600; 71045; 71250; 80048; 80053; 80061; 80307; 81001; 82803; 83735; 83880; 84443; 84484; 85025; 85027; 87040; 87635; 87804; 93005; 93010; 93306; 94660; 94667; 94668; 94762; 94799; 96365; 96375; 99285; J0360; J0456; J0696; J1644; J1940; J2930; J3475; J3490; J7060; J7620